=== PATIENT | female | born 1960 | race Caucasian/White ===

== ENCOUNTER 2017-10-02 08:50 | Inpatient (IN) | payer OTHER ==
[~2017-10-02] VITALS: Ht 175.3 cm; Wt 90.7 kg
[~2017-10-02 08:50] MED LIST: AMOX-CLAV 875-1 EACH PO; ASPIRIN EC81 M1 PO; ATORVASTATIN CA10 M1 PO; AUGMENTIN 875-1 EACH PO; CHLORTHALIDONE25 M1 PO; FISH OIL 1,0001 EAC4 PO; IBUPROFEN400 M1 PO; LOSARTAN POTAS100 M1 PO; MONTELUKAST SOD10 M1 PO; PROAIR HFA8.5 GM INH; SYSTANE 0.3-0.415 ML OU; TRAMADOL HCL50 M1 PO; VALIUM2 M1 PO; VITAMIN D2000 UNIT PO
--- NOTE | 2017-10-02 08:54 | ED ANIMAL BITE/WOUND CHECK ---
History of Present Illness General Chief Complaint: General Adult Stated Complaint: WAS SEEN 2-17 FOR CAT BITE, NO CHANGE (INFECTION) Source: patient, old records Exam Limitations: no limitations Vital Signs & Intake/Output Vital Signs & Intake/Output Vital Signs Date Time Temp Pulse Resp B/P B/P Pulse O2 O2 Flow FiO2 Mean Ox Delivery Rate 10/02 1042 99.2 97 16 122/74 98 Room Air 10/02 1038 Room Air 10/02 0856 99.1 99 20 119/80 96 Room Air Allergies Coded Allergies: celecoxib (From CELEBREX) (ABD PAIN 10/01/17) nut - unspecified (STOMACH ACHE AND CAUSES WHEEZING 10/01/17) Uncoded Allergies: ALLOY METAL (BLISTERS 10/01/17) Reconcile Medications Albuterol Sulfate (Proair Hfa) 90 MCG HFA.AER.AD 2 PUF INH 4XDAILY PRN RESP. (Reported) Amoxicillin/Clavulanate Potass (Amox-Clav 875-125 MG Tablet) 875 MG-125 MG TABLET 1 TAB PO BID ABX (Reported) Amoxicillin/Potassium Clav (Augmentin 875-125 Tablet) 875 MG-125 MG TABLET 1 TAB PO BID cellulitis Aspirin (Ecotrin*) 81 MG TABLET.DR 1 TAB PO DAILY HEART/BLOOD (Reported) Atorvastatin Calcium 10 MG TABLET 1 TAB PO DAILY CHOLESTEROL (Reported) Chlorthalidone 25 MG TABLET 0.5 TAB PO DAILY DIURETIC (Reported) Cholecalciferol (Vitamin D3) (Vitamin D) 2,000 UNIT CAPSULE 1 CAP PO DAILY SUPPLEMENT (Reported) Fluticasone/Salmeterol (Advair 250-50 Diskus) 250 MCG-50 MCG/DOSE BLST.W.DEV 1 PUF INH BID ASTHMA (Reported) Ibuprofen 400 MG TABLET 1 TAB PO Q8P PRN pain Losartan Potassium 100 MG TABLET 1 TAB PO DAILY BP (Reported) Montelukast Sodium 10 MG TABLET 1 TAB PO DAILY ALLERGIES (Reported) [place]-3 Fatty Acids/Fish Oil (Fish Oil 1,000 MG Softgel) (Unknown Strength) CAPSULE (Unknown Dose) PO DAILY SUPPLEMENT (Reported) Propylene Glycol/Peg 400 (Systane 0.3-0.4% Eye Drops) 0.3 %-0.4 % DROPS 1 GTT OU AD PRN EYE LUBRICANT (Reported) Tramadol HCl 50 MG TABLET 2 TAB PO 4XDAILY PRN PAIN (Reported) Triage Nurses Notes Reviewed? yes HPI: Patient was bitten by her cat yesterday. Patient then went to walk in [place] and she was put on amoxicillin. The swelling and redness got worse so she came in yesterday evening to the emergency room. Patient was given IV Unasyn. Patient lab work looked normal. Patient wanted to try and go home. Patient was put on Augmentin. Patient took Augmentin this morning. Patient was asked to come back this morning for reevaluation. The redness is spreading up her arm and is now above her elbow. Patient also has an aching pain to her right axilla. Positive chills but no fevers. No anorexia. Patient states that she feels much worse than she did yesterday. Past History Travel History Traveled to [place] past 21 day No Medical History Any Pertinent Medical History? 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 No Review of Systems Review of Systems Constitutional: Reports: see HPI, chills. EENTM: Reports: no symptoms. Respiratory: Reports: no symptoms. Cardiovascular: Reports: no symptoms. GI: Reports: no symptoms. Genitourinary: Reports: no symptoms. Musculoskeletal: Reports: see HPI. Skin: Reports: see HPI. Neurological/Psychological: Reports: no symptoms. Hematologic/Endocrine: Reports: no symptoms. Immunologic/Allergic: Reports: no symptoms. All Other Systems: Reviewed and Negative Physical Exam Physical Exam General Appearance: well developed/nourished, alert, awake Head: atraumatic Eyes: Bilateral: PERRL, EOMI. Ears, Nose, Throat: normal pharynx, normal ENT inspection, hearing grossly normal Neck: supple, lymphadenopathy (R) Respiratory: normal breath sounds, chest non-tender, no respiratory distress, lungs clear Cardiovascular: regular rate/rhythm, normal peripheral pulses Gastrointestinal: normal bowel sounds, soft, non-tender, no organomegaly Back: normal inspection, normal range of motion Extremities: ERYTHEMA AND TRACKING ERYTHEMA UP ABOVE HER ELBOW. pOSITIVE RIGHT AXILLARY ADENOPATHY. Neurologic/Psych: no motor/sensory deficits, awake, alert, oriented x 3, normal gait, normal mood/affect Skin: warm/dry Lymphatic: axilla node tender (R) Progress Differential Diagnosis: cellulitis Plan of Care: Orders Procedure Date/time Status Heart Healthy Diet 10/02 L Active Vital Signs 10/02 1122 Active Teach/Educate 10/02 1122 Active Pain Treatment and Response 10/02 1122 Active Nutritional Intake, Monitor 10/02 1122 Active Isolation 10/02 1122 Active Intake & Output 10/02 1122 Active Patient Care Conference 10/02 1122 Active Activity/Ambulation 10/02 1122 Active Intake & Output 10/02 1038 Active BLOOD CULTURE 10/02 1019 Active Pathway - chart 10/02 1009 Active House Staff 10/02 1009 Active Code Status 10/02 1009 Active Patient Data 10/02 0942 Active ED Holding Orders 10/02 0900 Active Admit to inpatient 10/02 0900 Active Vital Signs 10/02 0900 Active Code Status 10/02 0900 Complete COMPREHENSIVE METABOLIC PANEL 10/02 0859 Complete CBC WITHOUT DIFFERENTIAL 10/02 0859 Complete EKG 10/02 0859 Active VTE Mechanical Prophylaxis 10/02 UNK Active Current Medications Sig/Adair Start time Last Medication Dose Stop Time Status Admin Aspirin Buffered 81 MG DAILY 10/03 1000 AC (Ecotrin) Atorvastatin Calcium 10 MG DAILY 10/03 1000 AC (Lipitor) Enoxaparin Sodium 40 MG DAILY 10/03 1000 AC (Lovenox) Losartan Potassium 100 MG DAILY 10/03 1000 AC (Cozaar) Montelukast Sodium 10 MG DAILY 10/03 1000 AC (Singulair) Budesonide/ 2 PUF BID 10/02 2200 AC Formoterol Fumarate (Symbicort) Albuterol Sulfate 2 PUF 4 TIMES/DAY PRN 10/02 1400 AC (Ventolin) Ampicillin Sodium/ 1,500 MG Q6 10/02 1200 AC Sulbactam Sodium (Unasyn) Sodium Chloride 100 ML (Normal Saline 0.9%) Tramadol HCl 100 MG TID PRN 10/02 1015 AC (Ultram) Laboratory Tests 10/02/17 0933: Anion Gap 11, Estimated GFR > 60, BUN/Creatinine Ratio 17.1, Glucose 81, Calcium 9.8, Total Bilirubin 0.3, AST 33, ALT 75 H, Alkaline Phosphatase 49, Total Protein 6.7, Albumin 4.4, Globulin 2.3, Albumin/Globulin Ratio 1.9, CBC w Diff NO MAN DIFF REQ, RBC 4.79, MCV 85.7, MCH 28.6, MCHC 33.4, RDW 12.8, MPV 8.5, Gran % 66.5, Lymphocytes % 19.6 L, Monocytes % 9.4 H, Eosinophils % 3.8, Basophils % 0.7, Absolute Granulocytes 3.7, Absolute Lymphocytes 1.1 L, Absolute Monocytes 0.5, Absolute Eosinophils 0.2, Absolute Basophils 0 Microbiology 10/02 1129 BLOOD: Blood Culture - RECD 10/02 1129 BLOOD: Blood Culture - RECD Diagnostic Imaging: Viewed by Me: Radiology Read. Discussed w/RAD: Radiology Read. CXR Impression: PATIENT: CHIRAG TAVERAS PRESENT AGE: 56 PATIENT ACCOUNT NO: [id number] : 58 LOCATION: [facility] ORDERING PHYSICIAN: Flavio Mclaughlin MD SERVICE DATE: 10/02/17 EXAM TYPE: RAD - XRY-CHEST XRAY, TWO VIEWS EXAMINATION: XR CHEST CLINICAL INFORMATION: Fever. Concern for pneumonia. COMPARISON: None TECHNIQUE: 2 views of the chest were obtained. FINDINGS: The lungs are well expanded and clear with no focal consolidation or other abnormality demonstrated. The pleural spaces are clear. Heart size is normal. There is a small calcified right paratracheal lymph node. Spinal fusion hardware is partially visualized at the cervicothoracic junction. Mild multilevel spondylosis is present in the thoracic spine. IMPRESSION: No acute abnormality. No evidence for pneumonia. DICTATED BY: Michelle Maher MD DATE/ TIME DICTATED:10/02/17925 SUPERVISOR NURSE:HEMANT DATE/TIME TRANSCRIBED: 10/02/17925 CONFIDENTIAL, DO NOT COPY WITHOUT APPROPRIATE AUTHORIZATION. < Electronically signed in Other Vendor System> SIGNED BY: Michelle Maher MD 10/02/17930 Initial ED EKG: NSR, no ST T wave changes Departure Departure Disposition: STILL A PATIENT Condition: Stable Clinical Impression Primary Impression: Cellulitis Referrals: Ollie Gomez MD (PCP/Family) Departure Forms: Customer Survey General Discharge Information Admission Note Spoke With: Uzma Man MD Documentation of Exam: Documentation of any treatments & extenuating circumstances including Concerns Regarding Discharge (functional status, medication knowledge or non-compliance, living conditions, etc.) that warrant an admission rather than observation: [ Patient has failed outpatient antibiotics for cellulitis after cat bite. She now has tracking erythema above her elbow as well as axillary adenopathy. Patient will be admitted to the hospital for IV antibiotics.]
--- NOTE | 2017-10-02 09:31 | RADIOLOGY REPORT ---
EXAMINATION: XR CHEST CLINICAL INFORMATION: Fever. Concern for pneumonia. COMPARISON: None TECHNIQUE: 2 views of the chest were obtained. FINDINGS: The lungs are well expanded and clear with no focal consolidation or other abnormality demonstrated. The pleural spaces are clear. Heart size is normal. There is a small calcified right paratracheal lymph node. Spinal fusion hardware is partially visualized at the cervicothoracic junction. Mild multilevel spondylosis is present in the thoracic spine. IMPRESSION: No acute abnormality. No evidence for pneumonia.
[2017-10-02 09:50] LABS: ABSOLUTE BASOPHIL COUNT 0 /CUMM (0.0-0.2); ABSOLUTE EOSINOPHIL COUNT 0.2 /CUMM (0.0-0.7); ABSOLUTE GRANULOCYTE CT 3.7 /CUMM (1.4-6.5); ABSOLUTE LYMPH COUNT 1.1 /CUMM (1.2-3.4); ABSOLUTE MONOCYTE COUNT 0.5 /CUMM (0.10-0.60); BASOPHIL % 0.7 % (0.0-2.0); EOSINOPHIL % 3.8 % (0-5); GRANULOCYTE % 66.5 % (42.2-75.2); MEAN CORPUSCULAR HGB 28.6 PG (27.0-31.0); MEAN CORPUSCULAR HGB CONC 33.4 G/DL (33.0-37.0); MEAN CORPUSCULAR VOLUME 85.7 FL (81.0-99.0); MEAN PLATELET VOLUME 8.5 FL (7.4-10.4); PLATELET COUNT 157 /CUMM (130-400); RBC DISTRIBUTION WIDTH 12.8 % (11.5-14.5); RED BLOOD CELL CT 4.79 /CUMM (4.20-5.40); WHITE BLOOD CELL COUNT 5.5 /CUMM (4.8-10.8)
--- NOTE | 2017-10-02 10:01 | History & Physical ---
[facility] 10/02/17 1000: General Information and HPI MD Statement: I have seen and personally examined CHIRAG TAVERAS and documented this H&P. The patient is a 56 year old F who presented with a patient stated chief complaint of [cellulitis secondary to cat bite]. Source of Information: patient, family Exam Limitations: no limitations History of Present Illness: 56-year-old female with past medical history of remote Hodgkin lymphoma status post chemotherapy and radiotherapy 20 years ago(currently on remission), hypertension, hyperlipidemia, asthma, chronic back pain, trauma to the neck status post C3-C7 effusion. She presented to the ED yesterday with a chief complaint of pain and swelling around a cat bite site. Yesterday the patient was given tetanus posterior does and prescribed Augmentin, she was then sent home. This morning the patient came back with worsening right arm swelling, erythema and tenderness. The erythema now is extended to the right axilla and associated with tender lymphadenopathy on the right exiting left and right side of the neck. The patient denies fever, chills, shortness breath, or chest pain. She denies any recent weight loss. Allergies/Medications Allergies: Coded Allergies: celecoxib (From CELEBREX) (ABD PAIN 10/01/17) nut - unspecified (STOMACH ACHE AND CAUSES WHEEZING 10/01/17) Uncoded Allergies: ALLOY METAL (BLISTERS 10/01/17) Home Med list Albuterol Sulfate (Proair Hfa) 90 MCG HFA.AER.AD 2 PUF INH 4XDAILY PRN RESP. (Reported) Amoxicillin/Clavulanate Potass (Amox-Clav 875-125 MG Tablet) 875 MG-125 MG TABLET 1 TAB PO BID ABX (Reported) Amoxicillin/Potassium Clav (Augmentin 875-125 Tablet) 875 MG-125 MG TABLET 1 TAB PO BID cellulitis Aspirin (Ecotrin*) 81 MG TABLET.DR 1 TAB PO DAILY HEART/BLOOD (Reported) Atorvastatin Calcium 10 MG TABLET 1 TAB PO DAILY CHOLESTEROL (Reported) Chlorthalidone 25 MG TABLET 0.5 TAB PO DAILY DIURETIC (Reported) Cholecalciferol (Vitamin D3) (Vitamin D) 2,000 UNIT CAPSULE 1 CAP PO DAILY SUPPLEMENT (Reported) Fluticasone/Salmeterol (Advair 250-50 Diskus) 250 MCG-50 MCG/DOSE BLST.W.DEV 1 PUF INH BID ASTHMA (Reported) Ibuprofen 400 MG TABLET 1 TAB PO Q8P PRN pain Losartan Potassium 100 MG TABLET 1 TAB PO DAILY BP (Reported) Montelukast Sodium 10 MG TABLET 1 TAB PO DAILY ALLERGIES (Reported) [place]-3 Fatty Acids/Fish Oil (Fish Oil 1,000 MG Softgel) (Unknown Strength) CAPSULE (Unknown Dose) PO DAILY SUPPLEMENT (Reported) Propylene Glycol/Peg 400 (Systane 0.3-0.4% Eye Drops) 0.3 %-0.4 % DROPS 1 GTT OU AD PRN EYE LUBRICANT (Reported) Tramadol HCl 50 MG TABLET 2 TAB PO 4XDAILY PRN PAIN (Reported) Past History Travel History Traveled to [place] past 21 day No Medical History Neurological: NONE EENT: allergies Cardiovascular: hypertension, hyperlipidemia Respiratory: NONE Gastrointestinal: NONE Hepatic: NONE Renal: NONE Musculoskeletal: C-SPINE HERNIATIONS Psychiatric: chronic pain disorder, depression Endocrine: NONE Blood Disorders: NONE Cancer(s): 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 Exam & Diagnostic Data Last 24 Hrs of Vital Signs/I&O Vital Signs Date Time Temp Pulse Resp B/P B/P Pulse O2 O2 Flow FiO2 Mean Ox Delivery Rate 10/02 1042 99.2 97 16 122/74 98 Room Air 10/02 1038 Room Air 10/02 0856 99.1 99 20 119/80 96 Room Air Intake & Output 10/02 1600 10/02 0800 10/02 0000 Intake Total Output Total Balance Patient 90.718 kg Weight Weight Reported by Patient Measurement Method Physical Exam General Appearance Alert, Oriented X3, Cooperative, No Acute Distress Skin right arm edema and erythema HEENT Atraumatic, PERRLA, EOMI, Mucous Membr. moist/pink Neck No JVD, right side anterior and posterior LAD with tenderness Lymphatic tender right axillary LN Cardiovascular Regular Rate, Normal S1, Normal S2, No Murmurs Lungs Normal Air Movement, very mild right sided wheezing Abdomen Soft, No Tenderness Neurological Normal Speech, Cranial Nerves 3-12 NL Extremities No Clubbing, No Cyanosis, No Edema (except right arm ), right hand swelling, erythma, and tenderness around the cat teeth kip on the ulner side. erthema and tenderness on medial side of the right forearm , the erythma borders was marked with a skin marker Last 24 Hrs of Labs/Nitesh: Laboratory Tests 10/02/17 0933: Anion Gap 11, Estimated GFR > 60, BUN/Creatinine Ratio 17.1, Glucose 81, Calcium 9.8, Total Bilirubin 0.3, AST 33, ALT 75 H, Alkaline Phosphatase 49, Total Protein 6.7, Albumin 4.4, Globulin 2.3, Albumin/Globulin Ratio 1.9, CBC w Diff NO MAN DIFF REQ, RBC 4.79, MCV 85.7, MCH 28.6, MCHC 33.4, RDW 12.8, MPV 8.5, Gran % 66.5, Lymphocytes % 19.6 L, Monocytes % 9.4 H, Eosinophils % 3.8, Basophils % 0.7, Absolute Granulocytes 3.7, Absolute Lymphocytes 1.1 L, Absolute Monocytes 0.5, Absolute Eosinophils 0.2, Absolute Basophils 0 Microbiology 10/02 1130 BLOOD: Blood Culture - RECD 10/02 1115 BLOOD: Blood Culture - RECD Diagnostic Data EKG Results NSR with no abnormal finding except non significant mild st elevation on V2 Assessment/Plan Assessment: 56-year-old female who came yesterday to the ED with cellulitis post cat bite, she was given Augmentin and tetanus vaccine and was sent home. The patient's symptoms failed outpatient antibiotic for which she presented again to the ED. This morning she had erythema that extended from the hand to the forearm, right axilla, and right-sided neck lymph node. Plan #Cellulitis secondary to Cat bite * She will be admitted to the general medicine floor * Started on IV Unasyn * We will send for blood culture, most likely will be false-negative given recent antibiotic. * Follow the cellulitis borders(marked with a skin marker) daily #Hypertension, hyperlipidemia, asthma, and chronic back pain * Continue all home medication include * Metoprolol * Aspirin 81 mg * Losartan * Statin * Advair inhaler/albuterol inhaler * Montelukast * Tramadol 100 mg 3 times a day when necessary for pain -Heart healthy diet -DVT PPx: Lovenox -Full code As Ranked By This Provider Problem List: 1. Cat bite involving extremity 2. Cellulitis 3. Cervical radiculopathy Core Measures/Misc (05/01) Acute Coronary Syndrome ACS Diagnosis: No Congestive Heart Failure Congestive Heart Failure Diagnosis No Cerebrovascular Accident CVA/TIA Diagnosis: No VTE (View Protocol) VTE Risk Factors Age>40 No Mechanical VTE Prophylaxis d/t N/A MechProphylax Ordered No VTE Pharm Prophylaxis d/t NA PharmProphylax ordered Sepsis (View protocol) Sepsis Present: No Uzma Man MD 10/02/17 1431: Attending MD Review Statement Attending Statement Attending MD Statement: examined this patient, discuss w/resident/PA/BLASTING CONTRACT MAN, agreed w/resident/PA/BLASTING CONTRACT MAN, reviewed EMR data (avail) Attending Assessment/Plan: 56F PMH remote Hodgkin lymphoma status post chemotherapy and radiotherapy 20 years ago (currently in remission), HTN, HLD, asthma, chronic back pain with cat bite 2 days ago on the inside of her right wrist, saw her PCP, started Amoxicillin, worsened yesterday and came to ED where she was placed on Augmentin , returned to ED for follow up today with worsening erythema, pain, and swelling surrounding the bite, with streaking erythema up her inside forearm and upper arm, with right sided painful lymphadenopathy. She denies fever, chills, n/v, anorexia, or any other symptoms. The cat was a rescue and had been vaccinated, and the patient received the tetanus vaccine in the ED. 1. Cellulitis of right wrist and forearm due to cat bite with ascending lymphangitis and right axillary lymphadenopathy 2. Failure of outpatient treatment Plan - Admit to general medicine - Start Unasyn - Monitor borders of erythema - Blood cultures - Continue home medications - DVT PPx
[2017-10-02] MEDS ORDERED: ADVAIR 250-501 EACH INH (10:12)
[2017-10-02 13:58] VITALS: BP 136/92
--- NOTE | 2017-10-02 14:36 | Admission Certification ---
Admission Certification Certification Statement - As attending physician, I certify that at the time of - admission, based on clinical presentation, severity of - symptoms, need for further diagnostic testing and - therapeutic interventions, and risk of adverse outcomes - without in-hospital treatment, in my clinical assessment, - this patient requires an acute hospital stay for a minimum - of two nights or longer. I have also considered psychsocial - factors such as support system, advanced age, financial - issues, cognitive issues, and failed out-patient treatments, - past re-admission history, safety of patient, and lack of - compliance as applicable. Specific rationale supporting this admission is: Cellulitis wrist due to cat bite failing outpatient antibiotics with axillary lymphadenopathy
[2017-10-02 22:03] VITALS: BP 128/82
[2017-10-03 06:59] VITALS: BP 124/84
--- NOTE | 2017-10-03 08:16 | PN- Housestaff ---
Subjective Follow-up For: cat bite cellulitis Subjective: cellulitis improving on intravenous antibiotics but still complaining of significant pain and swelling in the palm of her hand and wrist with movement and tender right axillary lymphadenopathy afebrile Review of Systems Constitutional: Reports: see HPI. Objective Last 24 Hrs of Vital Signs/I&O Vital Signs Date Time Temp Pulse Resp B/P B/P Pulse O2 O2 Flow FiO2 Mean Ox Delivery Rate 10/03 0659 98.1 81 20 124/84 97 10/02 2203 98.5 81 20 128/82 98 Room Air 10/02 1358 98.1 85 20 136/92 97 Intake & Output 10/03 1600 10/03 0800 10/03 0000 Intake Total 720 250 Output Total Balance 720 250 Intake, IV 240 10 Intake, Oral 480 240 Number 0 0 Bowel Movements Physical Exam General Appearance: Alert, Oriented X3, Cooperative, No Acute Distress Cardiovascular: Regular Rate, Normal S1, Normal S2, No Murmurs Lungs: Clear to Auscultation, Normal Air Movement Abdomen: Normal Bowel Sounds, Soft, No Tenderness, No Masses Extremities: No Clubbing, No Cyanosis, No Edema, Normal Pulses, R arm wrist cellulitis, R axillary lymphadenopathy Current Medications: Current Medications Sig/Adair Start time Last Medication Dose Route Stop Time Status Admin Acetaminophen 650 MG Q4P PRN 10/02 1715 AC PO Albuterol Sulfate 2 PUF 4 TIMES/DAY PRN 10/02 1400 AC INH Ampicillin Sodium/ 1,500 MG Q6 10/02 1200 AC 10/03 Sulbactam Sodium IV 0554 Sodium Chloride 100 ML Aspirin Buffered 81 MG DAILY 10/03 1000 AC 10/03 PO 0824 Atorvastatin Calcium 10 MG DAILY 10/03 1000 AC 10/03 PO 0823 Budesonide/ 2 PUF BID 10/02 2200 AC 10/02 Formoterol Fumarate INH 2138 Diphenhydramine HCl 25 MG ONCE ONE 10/025 DC 10/02 PO 10/02 Enoxaparin Sodium 40 MG DAILY 10/03 1000 AC SC Losartan Potassium 100 MG DAILY 10/03 1000 AC 10/03 PO 0824 Montelukast Sodium 10 MG DAILY 10/03 1000 AC 10/03 PO 0824 Oxycodone HCl 5 MG Q6 PRN 10/02 1715 AC 10/03 PO 0823 Tramadol HCl 100 MG TID PRN 10/02 1015 AC 10/03 PO 0555 Last 24 Hrs of Lab/Nitesh Results Last 24 Hrs of Labs/Mics: Laboratory Tests 10/03/17 0700: Anion Gap 8, Estimated GFR > 60, BUN/Creatinine Ratio 14.3, CBC w Diff NO MAN DIFF REQ, RBC 4.29, MCV 85.6, MCH 29.4, MCHC 34.3, RDW 13.1, MPV 8.9, Gran % 58.3, Lymphocytes % 27.0, Monocytes % 9.8 H, Eosinophils % 4.3, Basophils % 0.6 , Absolute Granulocytes 2.5, Absolute Lymphocytes 1.1 L, Absolute Monocytes 0.4 , Absolute Eosinophils 0.2, Absolute Basophils 0 Microbiology 10/02 1130 BLOOD: Blood Culture - RECD 10/02 1115 BLOOD: Blood Culture - RECD Assessment/Plan Assessment: 56 year old female who came yesterday to the ED with cellulitis from a cat bite which continued to spread up her and axillary tender lymphadenopathy after after being given Augmentin and tetanus vaccine as an outpatient. Cat bite cellulitis: Cellulitis on upper arm improved, persistent around bite puncture, right wrist/ hand Improving in IV antibiotics, continue Unasyn Follow up blood cultures Change to PO Augmentin for discharge to complete 7 day course HTN/HLD: Continue metoprolol, ACEi, statin, and aspirin Asthma: Advair inhaler/albuterol inhaler Montelukast Tramadol 100 mg 3 times a day when necessary for pain Heart healthy diet DVT ppx-lovenox 40mg subcutaneous Full code Problem List: 1. Cellulitis 2. Cat bite involving extremity Pain Ratin Pain Location: right hand and axilla Pain Goal: Pain 4 or less Pain Plan: prn Tomorrow's Labs & Rationales: none
[2017-10-03 08:39] LABS: ABSOLUTE BASOPHIL COUNT 0 /CUMM (0.0-0.2); ABSOLUTE EOSINOPHIL COUNT 0.2 /CUMM (0.0-0.7); ABSOLUTE GRANULOCYTE CT 2.5 /CUMM (1.4-6.5); ABSOLUTE LYMPH COUNT 1.1 /CUMM (1.2-3.4); ABSOLUTE MONOCYTE COUNT 0.4 /CUMM (0.10-0.60); BASOPHIL % 0.6 % (0.0-2.0); EOSINOPHIL % 4.3 % (0-5); GRANULOCYTE % 58.3 % (42.2-75.2); HEMATOCRIT 36.7 % (37-47); MEAN CORPUSCULAR HGB 29.4 PG (27.0-31.0); MEAN CORPUSCULAR HGB CONC 34.3 G/DL (33.0-37.0); MEAN CORPUSCULAR VOLUME 85.6 FL (81.0-99.0); MEAN PLATELET VOLUME 8.9 FL (7.4-10.4); PLATELET COUNT 139 /CUMM (130-400); RBC DISTRIBUTION WIDTH 13.1 % (11.5-14.5); RED BLOOD CELL CT 4.29 /CUMM (4.20-5.40); WHITE BLOOD CELL COUNT 4.2 /CUMM (4.8-10.8)
--- NOTE | 2017-10-03 11:09 | PN- Att Addend ---
Attending Addendum Attending Brief Note 56F [facility] remote Hodgkin lymphoma status post chemotherapy and radiotherapy 20 years ago (currently in remission), HTN, HLD, asthma, chronic back pain with cat bite 2 days ago on the inside of her right wrist, saw her PCP, started Amoxicillin, worsened yesterday and came to ED where she was placed on Augmentin , returned to ED for follow up today with worsening erythema, pain, and swelling surrounding the bite, with streaking erythema up her inside forearm and upper arm, with right sided painful lymphadenopathy. She denies fever, chills, n/v, anorexia, or any other symptoms. The cat was a rescue and had been vaccinated, and the patient received the tetanus vaccine in the ED. Arm erythema improving today, though she still has warmth and throbbing. Afebrile. 1. Cellulitis of right wrist and forearm due to cat bite with ascending lymphangitis and right axillary lymphadenopathy 2. Failure of outpatient treatment Plan - Admit to general medicine - Start Unasyn - Monitor borders of erythema - Blood cultures - Continue home medications - DVT PPx - ANticipated discharge tomorrow on Unasyn
[2017-10-03 15:10] VITALS: BP 124/72
[2017-10-03 21:31] VITALS: BP 122/82
[2017-10-04 05:46] VITALS: BP 148/92
--- NOTE | 2017-10-04 07:01 | PN- Housestaff ---
Joselin FLOOD,Vishal 10/04/17 0701: Subjective Follow-up For: cat bite cellulitis Subjective: erythema, pain, and swelling are significantly improved axillary tenderness improved afebrile Review of Systems Constitutional: Reports: see HPI. Objective Last 24 Hrs of Vital Signs/I&O Vital Signs Date Time Temp Pulse Resp B/P B/P Pulse O2 O2 Flow FiO2 Mean Ox Delivery Rate 10/04 0846 148/92 10/04 0546 98.3 83 20 148/92 97 10/03 2131 98.4 90 20 122/82 97 Room Air 10/03 1510 98.4 78 18 124/72 99 Room Air Intake & Output 10/04 1600 10/04 0800 10/04 0000 Intake Total 720 250 Output Total 1 Balance 720 249 Intake, IV 240 10 Intake, Oral 480 240 Number 0 0 Bowel Movements Output, Stool 1 Physical Exam General Appearance: Alert, Oriented X3, Cooperative, No Acute Distress Lymphatic: Axillary nl, Cervical nl, right axillary tenderness but no palpable nodes Cardiovascular: Regular Rate, Normal S1, Normal S2, No Murmurs Lungs: Clear to Auscultation, Normal Air Movement Abdomen: Normal Bowel Sounds, Soft, No Tenderness, No Masses Extremities: No Clubbing, No Cyanosis, No Edema, Normal Pulses Current Medications: Current Medications Sig/Adair Start time Last Medication Dose Route Stop Time Status Admin Acetaminophen 650 MG Q4P PRN 10/02 1715 AC PO Albuterol Sulfate 2 PUF 4 TIMES/DAY PRN 10/02 1400 AC INH Amoxicillin/ 875 MG ONE TIME ONE 10/04 1000 DC Clavulanate Potassium PO 10/04 1001 Ampicillin Sodium/ 1,500 MG Q6 10/02 1200 DC 10/04 Sulbactam Sodium IV 0611 Sodium Chloride 100 ML Aspirin Buffered 81 MG DAILY 10/03 1000 AC 10/04 PO 0847 Atorvastatin Calcium 10 MG DAILY 10/03 1000 AC 10/04 PO 0847 Budesonide/ 2 PUF BID 10/02 2200 AC 10/04 Formoterol Fumarate INH 0847 Enoxaparin Sodium 40 MG DAILY 10/03 1000 AC SC Losartan Potassium 100 MG DAILY 10/03 1000 AC 10/04 PO 0846 Montelukast Sodium 10 MG DAILY 10/03 1000 AC 10/04 PO 0846 Oxycodone HCl 5 MG Q6 PRN 10/02 1715 AC 10/04 PO 0906 Potassium Chloride 20 MEQ ONCE ONE 10/03 1615 DC 10/03 PO 10/03 1616 2113 Tramadol HCl 100 MG TID PRN 10/02 1015 AC 10/04 PO 0611 Assessment/Plan Assessment: 56 year old female who came yesterday to the ED with cellulitis from a cat bite which continued to spread up her and axillary tender lymphadenopathy after after being given Augmentin and tetanus vaccine as an outpatient. Cat bite cellulitis: Cellulitis on upper arm improved, persistent around bite puncture, right wrist/ hand Improving in IV Unasyn Blood cultures negative Change to PO Augmentin for discharge for 7 days on discharge Tramadol 50mg PO TID prn for analgesia HTN/HLD: Continue metoprolol, ACEi, statin, and aspirin Asthma: Advair inhaler/albuterol inhaler Montelukast Heart healthy diet DVT ppx-lovenox 40mg subcutaneous Full code Stable for discharge today Problem List: 1. Cellulitis 2. Cat bite involving extremity Pain Ratin Pain Location: right hand Pain Goal: Pain 4 or less Pain Plan: prn Tomorrow's Labs & Rationales: none, discharge Uzma Man MD 10/04/17 1051: Attending MD Review Statement Attending Statement Attending MD Statement: examined this patient, discuss w/resident/PA/SONOGRAPHY TECHNICIAN, agreed w/resident/PA/SONOGRAPHY TECHNICIAN, reviewed EMR data (avail) Attending Assessment/Plan: 56F PMH remote Hodgkin lymphoma status post chemotherapy and radiotherapy 20 years ago (currently in remission), HTN, HLD, asthma, chronic back pain with cat bite 2 days ago on the inside of her right wrist, saw her PCP, started Amoxicillin, worsened yesterday and came to ED where she was placed on Augmentin , returned to ED for follow up today with worsening erythema, pain, and swelling surrounding the bite, with streaking erythema up her inside forearm and upper arm, with right sided painful lymphadenopathy. She denies fever, chills, n/v, anorexia, or any other symptoms. The cat was a rescue and had been vaccinated, and the patient received the tetanus vaccine in the ED. Erythema nearly resolved, as has lymphadenopathy 1. Cellulitis of right wrist and forearm due to cat bite with ascending lymphangitis and right axillary lymphadenopathy 2. Failure of outpatient treatment Plan - Discharge home - Augmentin on discharge - Continue home medications - PCP follow up
--- NOTE | 2017-10-04 07:56 | Discharge Summary ---
Visit Information Visit Dates Admission Date: 10/02/17 Discharge Date: 10/04/17 Hospital Course Course Attending Physician: Uzma Man MD Primary Care Physician: Patricia FLOOD,Ollie Hospital Course: 56 year old female with past medical history significant for Hodgkin lymphoma s/ p chemoradiotherapy 20 years ago currently in remission, hypertension, hyperlipidemia, asthma, and chronic back pain presented to the ED with pain, swelling, and erythema around a cat bite on her right hand and wrist. The patient was discharged home on oral augmentin and given a tetanus booster. The following day, the patient was admitted with worsening right arm swelling and erythema tracking up the arm and tender axillary lymphadenopathy. The patient was afebrile, without leukocytosis, and blood cultures were negative. The patient was treated with intravenous Unasyn and her pain, cellulits, and tender lymphadenopathy quickly improved over the next two days. The patient was discharged with one week of PO Augmentin. Tramadol was continued for analgesia. The patient's other home medications were continued. The patient was instructed to follow up with her primary care physician within two weeks of discharge. Allergies: Coded Allergies: celecoxib (From CELEBREX) (ABD PAIN 10/01/17) nut - unspecified (STOMACH ACHE AND CAUSES WHEEZING 10/01/17) Uncoded Allergies: ALLOY METAL (BLISTERS 10/01/17) Disposition Summary Disposition Principal Diagnosis: Cellulitis of right wrist and forearm due to cat bite with ascending lymphangitis and right axillary lymphadenopathy Failure of outpatient treatment Additional Diagnosis: Hypertension Hyperlipidemia Asthma Discharge Disposition: home or self care Discharge Instructions General Discharge Information Code Status: Full Code Patient's Diet: Heart healthy diet Patient's Activity: As tolerated, no limitations Follow-Up Instructions/Appts: Please follow up with your primary care physician within two weeks of discharge. Medications at Discharge Discharge Medications: Continue taking these medications: Atorvastatin Calcium (Atorvastatin Calcium) 10 MG TABLET 1 Tablet ORAL DAILY Qty = 90 Comments: Last Taken: 10/04/17 Time: 0850 AM Losartan Potassium (Losartan Potassium) 100 MG TABLET 1 Tablet ORAL DAILY Qty = 90 Comments: Last Taken: 10/04/17 Time: 0850 AM Montelukast Sodium (Montelukast Sodium) 10 MG TABLET 1 Tablet ORAL DAILY Qty = 90 Comments: Last Taken: 10/04/17 Time: 0850 AM Tramadol HCl (Tramadol HCl) 50 MG TABLET 2 Tablet ORAL 4XDAILY as needed for PAIN Qty = 224 Comments: Last Taken: 10/04/17 Time: 0600 AM Albuterol Sulfate (Proair Hfa) 90 MCG HFA.AER.AD 2 Puff Inhale through mouth 4XDAILY as needed for RESP. Qty = 9 Comments: NOT GIVEN IN HOSPITAL Chlorthalidone (Chlorthalidone) 25 MG TABLET 0.5 Tablet ORAL DAILY Qty = 45 Comments: NOT GIVEN IN HOSPITAL Cholecalciferol (Vitamin D3) (Vitamin D) 2,000 UNIT CAPSULE 1 Capsule ORAL DAILY Comments: NOT GIVEN IN HOSPITAL [place]-3 Fatty Acids/Fish Oil (Fish Oil 1,000 MG Softgel) (Unknown Strength) CAPSULE Unknown Dose ORAL DAILY Comments: NOT GIVEN IN HOSPITAL Aspirin (Ecotrin*) 81 MG TABLET.DR 1 Tablet ORAL DAILY Comments: Last Taken: 10/04/17 Time: 0850 AM Propylene Glycol/Peg 400 (Systane 0.3-0.4% Eye Drops) 0.3 %-0.4 % DROPS 1 Drop Both Eyes As Directed as needed for EYE LUBRICANT Comments: NOT GIVEN IN HOSPITAL Ibuprofen (Ibuprofen) 400 MG TABLET 1 Tablet ORAL EVERY 8 HOURS NEEDED as needed for pain Qty = 20 Comments: NOT GIVEN IN HOSPITAL Fluticasone/Salmeterol (Advair 250-50 Diskus) 250 MCG-50 MCG/DOSE BLST.W.DEV 1 Puff Inhale through mouth TWICE DAILY Comments: NOT GIVEN IN HOSPITAL Amoxicillin/Potassium Clav (Augmentin 875-125 Tablet) 875 MG-125 MG TABLET 1 Tablet ORAL TWICE DAILY Qty = 14 Comments: Last Taken: 10/04/17 Time: 1100 AM This prescription has been renewed Copies To: Patricia FLOOD,Ollie Small MD Review Statement Documenting Attending: Uzma Man MD
[2017-10-04] MEDS ORDERED: AUGMENTIN 875-1 EACH PO (07:58)
--- NOTE | 2017-10-04 07:58 | Patient Discharge Instructions ---
Discharge Instructions General Discharge Information You were seen/treated for: cellulitis Special Instructions: please follow up with your primary care physician within two weeks of discharge. please return to the hospital if you develop severe, pain, fever, or worsening cellulitis Acute Coronary Syndrome Inclusion Criteria At DC or during hospital stay patient has or had the following: ACS DIAGNOSIS No Discharge Core Measures Meds if any: Prescribed or Continued at Discharge Meds if any: NOT Prescribed or Continued at Discharge Congestive Heart Failure Inclusion Criteria At DC or during hospital stay patient has or had the following: CHF DIAGNOSIS No Discharge Core Measures Meds if any: Prescribed or Continued at Discharge Meds if any: NOT Prescribed or Continued at Discharge Cerebrovascular accident Inclusion Criteria At DC or during hospital stay patient has or had the following: CVA/TIA Diagnosis No Discharge Core Measures Meds if any: Prescribed or Continued at Discharge Meds if any: NOT Prescribed or Continued at Discharge Venous thromboembolism Inclusion Criteria VTE Diagnosis No VTE Type NONE VTE Confirmed by (Test) NONE Discharge Core Measures - Per Current guidelines, there needs to be overlap - treatment for the first 5 days of Warfarin therapy. - If discharged on Warfarin prior to 5 days of - overlap therapy, the patient will need to be - assessed for post discharge needs including - *Post discharge parental anticoagulation - *Warfarin and/or parental anticoagulation education - *Follow up date to check INR post discharge At least 5 days overlap therapy as Inpatient No Meds if any: Prescribed or Continued at Discharge Note: Overlap Therapy is Warfarin and Anticoagulant Meds if any: NOT Prescribed or Continued at Discharge
[2017-10-04 08:46] VITALS: BP 148/92
== END 2017-10-04 11:19 | DRG 603 ==
LOC: ERH 08:50 → 2NB 09:00 → ERHI 09:00 → ENRESERV 10:28 → ENTRNSPT 10:43 → EDTRNSPT 11:00 → EDTRNSPTSTS 11:00 → 2NB 11:01 → CMPTRNSPT 11:14 → ENPENDDIS 10-04 10:17 → 2NB 10-04 11:19
PROVIDERS: Emergency Medicine; Student in an Organized Health Care Education/Training Program
DX: L03.113 Cellulitis of right upper limb (principal); M50.20 Other cervical disc displacement, unspecified cervical region; E78.5 Hyperlipidemia, unspecified; S61.551A Open bite of right wrist, initial encounter; W55.01XA Bitten by cat, initial encounter; Z85.72 Personal history of non-Hodgkin lymphomas; Z92.21 Personal history of antineoplastic chemotherapy; I10 Essential (primary) hypertension; J45.909 Unspecified asthma, uncomplicated; M54.9 Dorsalgia, unspecified; Z88.6 Allergy status to analgesic agent; Z91.018 Allergy to other foods; Z79.82 Long term (current) use of aspirin; Z79.51 Long term (current) use of inhaled steroids; F32.9 Major depressive disorder, single episode, unspecified; M54.12 Radiculopathy, cervical region
CPT/HCPCS: 2NBSP; 36415; 71046; 82436; 87040; 93005; 93010; 96374; J1650; J3490

== ENCOUNTER 2018-01-31 02:06 | Inpatient (IN) | payer OTHER ==
[~2018-01-31] VITALS: Ht 175.3 cm; Wt 93.1 kg
[~2018-01-31 02:06] MED LIST changes: +ADVAIR 250-501 EACH INH
--- NOTE | 2018-01-31 08:53 | Operative Report ---
Operative/Inv Procedure Report Surgery Date: 01/31/18 Name of Procedure: 1. L3, L4, L5 pars osteotomies for correction of deformity 2. L3/4, L4/5, L5/ S1 far lateral discectomies, TLIF with interbody anne tritanium cages, autograft 3. L3, L4, L5, S1 segmental posterolateral arthrodesis with styker vyas pedicle screws/rods, autograft, bio boat DBM allograft, ICBM aspirate 4. ICBM aspirate 5. O-arm navigation Pre-Operative Diagnosis: L3/4, L4/5, L5/S1 spondylolisthesis, stenosis, DDD Post-Operative Diagnosis: same Estimated Blood Loss: cc Surgeon/Equity Research Analyst: Jim FLOOD,Taiwo Velazquez MD Anesthesia: general endotracheal tube Monitors: neurophysiologic monitoring IV Fluids: 3200cc replaced with crystalloid, 500cc colloid, 1550cc cell saver Implants: anne tritanium cages, vyas pedicle screws and rods Urine Output: 465cc via jerez Drains: med HV Specimens: L3/4, L4/5, L5/S1 disc material Complications: none Condition: neurologically stable Operative Indication: 57yo female with progressive and intractable bilat LE pain and parasthesias not responsive to conservative care with high grade stenosis, DDD, and spondylolisthesis from L3/4 to L5/S1 now presents for lumbar decompression and stabilization for multilevel high grade stenosis and spondylolisthesis L3-S1. Operative/Procedure Note Note: Patient was taken the operating room. After appropriate patient identification, neurophysiologic monitoring leads were placed and baseline recordings were obtained. The patient then underwent the smooth induction of general endotracheal anesthesia without incident. Following intubation monitoring was stable. A Jerez catheter was sterilely inserted. DVT prophylaxis was utilized throughout the case. Patient was given 2 g of IV Kefzol Preoperative Prophylaxis. With All Tubes and Lines Secured, the Patient Was Carefully Turned to the Prone Position on the Shun Frame Taking Care to Ensure That All Pressure Points Were Well-Padded. Monitoring Was Stable Following the Turn.The Low Back Was Widely Prepped and Draped Usual Sterile Fashion Using [place] Iodine Solution. A Vertical Midline Skin Incision Was Marked and Infiltrated with 10 ML of Local Anesthetic. Small gauge spinal needle was placed superficially and a localizing x-ray was obtained to confirm the needle to be at L5. Skin incision was made with a 10 blade knife. Dissection was carried down through subcutaneous tissue with the Bovie to the lumbodorsal fascia. The fascia was incised and a subperiosteal dissection of the lumbar paravertebral muscles was performed exposing the underlying spinous processes lamina and facets from L3 to S1 bilaterally and self-retaining retractors were placed beneath the muscle. A [place] 4 elevator was placed under the presumed L4 lamina and wes on the rostral pars and an intraoperative lateral lumbar x- rays was obtained to confirm the correct level. Xray showed the L3/4 level and we exposed down to the L5/S1 level and identified the sacral ala bilaterally. With the correct level verified, we then proceeded to expose the transverse processes from L3 to L5 as well as the sacral alar bilaterally and they were decorticated with a high-speed drill. We then focused our attention to the decompression. A complete laminectomy from L3 to S1 was completed using a combination of the bone scalpel, small straight and angled curettes and Kerrison rongeurs. Thickened ligamentum flavum was gently elevated and resected allowing excellent decompression of the thecal sac. Bilateral pars osteotomies were then performed at L3, L4, and L5 using combination the bone scalpel and a Kerrison rongeurs and total facetectomies were completed. All bone was saved and passed to the back table for subsequent arthrodesis. Pedicles were skeletonized at L3, L4, L5, and S1 bilaterally and the exiting and traversing roots were widely decompressed on both sides. We then focused our attention to the discectomies. Using a far lateral approach , discectomies were completed at L3/4, L4 5 from the patient's left side and from the right at L5/S1. The dural sac was gently mobilized to the midline, the underlying disc annulus was coagulated with a bipolar and incised in a rectangular fashion with an 11 blade knife and discectomies were completed with small straight and angled curettes pituitary rongeurs disc space fernando and rasps until all the cartilaginous endplates were removed at all 3 levels. 10 mL of right iliac crest bone marrow aspirate was then taken via a Jamshidi needle through a separate stab incision at the right iliac crest and added to the morcellated autograft. We next focused our attention to the interbody arthrodesis. Beginning at L5-S1, after appropriate trials, a 9 x 28 x 6 mm Anne titanium peek cage was selected. It was filled with morcellated autograft and ICBM aspirate. morcellated autograft which was packed into the anterior interspace. We then tamped the L5-S1 cage into the disc space under direct visualization and countersunk the cage by approximately 2 mm and its final position was noted to be excellent. At L4 5, a 11 x 28 x 6 mm titanium cage was also selected after appropriate trials and packed with morcellated autograft. Morcellated autograft was packed into the anterior disc space and the L4 5 cage was packed with autograft and then gently tamped into the interspace under direct visualization and countersunk by several millimeters and its position also confirmed and noted to be excellent. At L3 4, a 10 x 28 x 6 mm titanium cage was selected and packed with morcellated autograft. autograft were carefully packed into the anterior aspect of the L3 4 disc space followed by the cage was gently tamped into the interspace and countersunk by 2 mm and its final position confirmed and noted to be excellent. With all cages in position, we then proceeded to the posterior lateral arthrodesis. The O arm reference arc was then fixed to the right iliac crest and an AP and lateral x-rays were obtained with the O arm followed by a spin. Reconstructions were completed and confirmed. We then used live navigation to place all of the posterolateral hardware. Prior to placing the pedicle screw instrumentation, all residual bone graft was moistened with iliac crest bone marrow aspirate was packed over the transverse processes from L3 to the sacral alar bilaterally and compressed with 5cc of bio boat DBM. Entry points for [place] pedicle screws were selected using the O arm at the junction of the pars interarticularis transverse process and inferomedial aspect of the rostral facet. All screws were placed by piercing the bone with the drill, traversing the pedicle with a gearshift under the hole with a ball- tipped probe, and screw placed with power. We began at L3. 6.5 x 50 mm screw was placed bilaterally. At L4, 6.5 x 45 mm screws were placed bilaterally, at L5, 6.5 x 40 mm screws bilaterally, at S1, 6.5 x 35 mm screws placed bilaterally. With all screws were in position, they were stimulated with thresholds greater than 30 mA at all locations. With all the screws in position, we then obtained a second spin of the O arm and completed the reconstructions to ensure good hardware positioning. All cages were in excellent position. We backed out the left S1 screw one full turn as it was noted to extend just beyond the anterior cortex. With all screws in position, we gently lordosed and then top loaded 90 mm titanium rods and locking caps were placed. Screws were then finally tightened using antitorque device. Was copiously irrigated with bacitracin and sterile saline irrigation. Epidural bleeding was controlled using FloSeal, Surgifoam and cottonoid patties and points of muscle bleeding were controlled with the bipolar electrocautery. A medium ALEJANDRA drain was placed into the wound and secured to the skin with a 2-0 nylon suture. 1 g of vancomycin powder was gently used to cover the cut muscle and soft tissue surfaces in the wound and we then began closure. 10 mL of long- acting local anesthetic was placed in the paraspinal muscle. Deep muscle was reapproximated with interrupted 0 Vicryl suture. Subcutaneous tissue was closed in layers with interrupted oh and 2-0 Vicryl suture. The skin was closed with iris. The wounds were cleaned and dried. Bacitracin and sterile occlusive dressings were placed. The reference arc was removed from the right iliac crest. That wound was irrigated, closed in layers in the subcutaneous tissue with Vicryl suture and iris in the skin. It was cleaned and dried and a sterile occlusive dressing was placed. At the completion of the case, all sponge needle and injuring counts were correct at the completion of the procedure 3. Neurophysiologic monitoring was stable throughout the case. Patient was returned to the supine position, awakened extubated and taken to PACU in stable condition. She was noted to be moving all four extremities. Discharge Disposition: PACU Additional Comments: Patient noted to be excessively oozy during the entire case and received 1g TXA at the closing. Preop coagulation studies were normal and pt confirmed prior to case that she had dc'd all asa and nsaids 2 weeks preop.
--- NOTE | 2018-01-31 12:37 | RADIOLOGY REPORT ---
EXAMINATION: XR LUMBAR SPINE (timed 9:02 AM). XR LUMBAR SPINE (timed 9:36 AM). CLINICAL INFORMATION: L3-L4, L4-L5, L5-S1 fusion image. COMPARISON: CT scan of the lumbar spine dated 12/27/2017. TECHNIQUE: Single lateral view of the lumbar spine was performed FINDINGS: Film 1: A surgical marker is seen projecting in between the posterior spinous processes of L4 and L5. Grade 1 anterolistheses of L4 on L5 is seen. Minimal retrolisthesis of L5 on S1 is also noted. Film 2: Surgical markers are seen projected over the L3-L4 facet joint. Grade 1 anterolistheses of L4 on L5 is again noted. IMPRESSION: Intraoperative lateral views of the lumbar spine performed for localization purposes as discussed above.
[2018-01-31 13:05] LABS: ABSOLUTE BASOPHIL COUNT 0 /CUMM (0.0-0.2); ABSOLUTE EOSINOPHIL COUNT 0 /CUMM (0.0-0.7); ABSOLUTE GRANULOCYTE CT 7.6 /CUMM (1.4-6.5); ABSOLUTE LYMPH COUNT 0.6 /CUMM (1.2-3.4); ABSOLUTE MONOCYTE COUNT 0.2 /CUMM (0.10-0.60); BASOPHIL % 0.2 % (0.0-2.0); EOSINOPHIL % 0.4 % (0-5); MEAN CORPUSCULAR HGB 29.7 PG (27.0-31.0); MEAN CORPUSCULAR HGB CONC 34.5 G/DL (33.0-37.0); MEAN CORPUSCULAR VOLUME 86.1 FL (81.0-99.0); MEAN PLATELET VOLUME 8.9 FL (7.4-10.4); RBC DISTRIBUTION WIDTH 12.1 % (11.5-14.5); RED BLOOD CELL CT 4.18 /CUMM (4.20-5.40); WHITE BLOOD CELL COUNT 8.4 /CUMM (4.8-10.8)
[2018-01-31 13:07] LABS: GRANULOCYTE % 90.2 % (42.2-75.2)
[2018-01-31 13:30] LABS: PLATELET COUNT 125 /CUMM (130-400)
--- NOTE | 2018-01-31 14:47 | Operative Report ---
Operative/Inv Procedure Report Surgery Date: 01/31/18 Name of Procedure: L3 4 L4 5 L5-S1 far lateral bilateral complete laminectomies complete foraminotomies complete facetectomies and osteotomies at L3 4 L4 5 and L5-S1. L3 4 TLIF, insertion of 11 x 28 mm titanium interbody cage. L4 5 TLIF, insertion of titanium interbody cage. L5-S1 TLIF, insertion of titanium interbody cage. 34 L4 5 L5-S1 posterior lateral arthrodesis utilizing autologous bone graft and iliac crest graft aspirate. L3 4 L4 5 L5-S1 posterior lateral howard titanium segmental instrumentation. ` Stereotactic Pre-Operative Diagnosis: Lumbar spondylosis lumbar spondylolisthesis stenosis. Post-Operative Diagnosis: Same Estimated Blood Loss: 800cc Surgeon/Bath Steward: Taiwo Alfaro MD and Karyna Fernandez MD Anesthesia: general endotracheal tube Monitors: Electrophysiological monitoring Operative/Procedure Note Note: Patient was brought into the operating room, and after undergoing endotracheal intubation Quan catheterization Venodyne's were placed on both lower extremities. She was placed prone on an OSI table all bony prominences well- padded. Back was washed with alcohol and Betadine x-rays used for localization. It was reprepped again with ChloraPrep solution and draped in usual sterile fashion. An incision was now made from L3 down through S1 and developed down through the length subcutaneous tissues the paraspinal muscles were then mobilized out lateral to the level of the transverse processes. X-ray was used for confirmation. Working an bone scalpel the lamina of L3-L4 and L5 was now completely removed. The bone was harvested morcellized and later used in the arthrodesis. Furthermore bilateral foraminotomies and complete pars osteotomies were now performed at L3 4 bilaterally L4 5 and L5-S1. The facet joints were also removed leaving behind the pedicles. All bone was morcellized and harvested and used for the arthrodesis. At this point after clearing out the ligamentous tissue completely freed. At L3 4 the disc space was entered with 11 blade and was removed combination of straight and curved rongeurs and straight and curved curettes. The cartilaginous end plates were removed and the bony end plates were partially decorticated. Separate iliac crest graft incision was made over the right iliac crest and then working through that iliac crest graft aspirate was removed and mixed in with the autologous bone graft that was harvested from the patient's back. Bone graft was now packed into the interspace at L3 4. A cage 11 x 28 mm in length titanium was now centrally filled with autologous bone graft and tapped across the midline at the L3 4 level. Copious amounts of bacitracin irrigation attention was turned toward the L4 5 level. An 11 blade was now used to enter the L4 5 disc space and the space was now removed a combination of straight and curved rongeurs and straight and curved curettes. This cartilage endplates were removed and bony end plates were partially decorticated. Autologous bone graft was packed into the interspace. A titanium cage was centrally filled with autologous bone graft and tapped across the midline between the L4 and the L5 interspace. The L5-S1 disc was now entered with 11 blade and was removed with a combination of straight and curved rongeurs and straight and curved curettes. The cartilaginous endplates were removed and the bony endplates were partially decorticated. Bone graft was packed into the interspace at the L5-S1 level. A titanium cage was centrally packed with autologous bone graft and tapped across the midline at the L5-S1 level. The transverse processes at L3 L4 L5 and the ala of S1 were now posteriorly decorticated. Morselized bone was packed over the decorticated surfaces posterolaterally. Stereotactic coordinates were now obtained utilizing the O arm. Under stereotactic guidance the pedicles were accessed at L3-L4 L5- S1 with [employer] titanium instrumentation. 6.5 mm diameter screws were utilized. The lengths were utilized were 50 at L3 45 at L4 40 in length at L5 and 35 at S1. Screrws were stimulated and found to stimulate above 30 mA. Copious amounts of bacitracin irrigation was again used. A drain was placed and removed a separate stab incision superiorly. Vancomycin powder was placed into the wound. The paraspinal muscles and fascia were reapproximated utilizing interrupted 0 Vicryls. Inverted 2-0 Vicryl's were utilized for the subcutaneous teeniest tissues. The patient was extubated and taken to recovery room having the procedure well.
[2018-01-31 15:25] LABS: ABSOLUTE BASOPHIL COUNT 0.1 /CUMM (0.0-0.2); ABSOLUTE EOSINOPHIL COUNT 0 /CUMM (0.0-0.7); ABSOLUTE LYMPH COUNT 0.8 /CUMM (1.2-3.4); ABSOLUTE MONOCYTE COUNT 0.3 /CUMM (0.10-0.60); BASOPHIL % 0.4 % (0.0-2.0); EOSINOPHIL % 0.1 % (0-5); GRANULOCYTE % 91.9 % (42.2-75.2); HEMATOCRIT 33.1 % (37-47); MEAN CORPUSCULAR HGB 29.4 PG (27.0-31.0); MEAN CORPUSCULAR VOLUME 86.5 FL (81.0-99.0); MEAN PLATELET VOLUME 8.3 FL (7.4-10.4); PLATELET COUNT 116 /CUMM (130-400); RBC DISTRIBUTION WIDTH 12.5 % (11.5-14.5); RED BLOOD CELL CT 3.82 /CUMM (4.20-5.40)
[2018-01-31 15:35] LABS: WHITE BLOOD CELL COUNT 15.3 /CUMM (4.8-10.8)
--- NOTE | 2018-01-31 15:44 | RADIOLOGY REPORT ---
EXAMINATION: CR LUMBOSACRAL SPINE/INTRAOPERATIVE FLUOROSCOPY CLINICAL INDICATION: L3-L4, L4-L5, L5-S1 TLIF in OR COMPARISON: Lumbar spine films from earlier today. TECHNIQUE/FINDINGS: O-Arm equipment was dedicated to the operating room for the performance of an intraoperative procedure. 2 O-Arm runs were acquired and are archived in PACS, demonstrating the L3-S1 fusion with interbody disc spacer placements and grade 1 anterolistheses of L4 on 5. Please refer to operative notes for procedural detail. FLUOROSCOPY TIME: 6.17 seconds. IMPRESSION: Administrative dictation for intraoperative CT fluoroscopy and image archiving in PACS. Please refer to operative notes for details.
[2018-01-31 15:54] LABS: PT 14.4 SEC (9.4-12.5); PTT 42 SEC (25-37)
[2018-01-31 18:25] VITALS: BP 115/55
[2018-01-31 19:30] VITALS: BP 100/58
[2018-01-31 19:50] VITALS: BP 108/80
[2018-01-31 20:15] VITALS: BP 112/76
[2018-01-31 20:25] VITALS: BP 112/76
--- NOTE | 2018-01-31 20:59 | PN- Neurosurgical ---
Subjective Subjective: POST-OP NOTE Reports "tired" and "feel funny". Currently lumbar discomfort "7/10", although she is falling asleep periodically during conversation. Large amount of bloody drainage from the hemovac drain in pacu, but only 100mls more since transferred to [facility] floor. Serial labs drawn, with another set to be drawn at midnight. She denies dizziness. No shortness of breath. No chest pains. No nausea. Not yet out of bed. TXA transfused slowly over 15 minutes on floor, without any significant hypotension. Objective Vital Signs and I&Os Vital Signs Date Time Temp Pulse Resp B/P B/P Pulse O2 O2 Flow FiO2 Mean Ox Delivery Rate 01/31 2025 98.5 113 9 112/76 100 Nasal Cannula 01/31 1825 98.5 112 9 115/55 01/31 1825 98.5 112 9 55 99 Nasal 2.0L Cannula 01/31 1825 99 Nasal 2.0L Cannula Physical Exam: General - alert & oriented x 3. comfortable appearing. sleepy, but appropriately responding to questions. Lungs - clear bilaterally. no w/r/r. Cardiac - s1s2. slightly tachy, 100s-110 Abdomen - soft. nontender. Lumbar - dressings stained, but intact. no hematoma noted. hemovac drain appears to be slowing down in bloody drainage volume (300+275 in pacu, followed by 100 over 1-2 hours on floor) - jerez draining concentrated yellow urine (close to 500mls between OR & PACU ) Extremities - warm bilaterally. no c/c/e. calves soft and nontender b/l. sensation grossly equal. strong DF/PF/EHL. athrombics active b/l. Current Medications: Current Medications Sig/Adair Start time Last Medication Dose Route Stop Time Status Admin Acetaminophen 1,000 MG Q6H 01/31 2030 AC N/A 1 UNIT IV 02/01 1444 Acetaminophen 650 MG Q4P PRN 01/31 1815 DC PO Acetaminophen 1,000 MG .STK-MED ONE 01/31 0756 DC IV 01/31 0757 Albuterol Sulfate 2 PUF Q4P PRN 01/31 2030 AC INH Atorvastatin Calcium 10 MG 1700 02/01 1700 AC PO Bisacodyl 10 MG DAILY NEEDED PRN 01/31 1830 AC KS Budesonide/ 2 PUF BID 01/31 2100 AC Formoterol Fumarate INH Cefazolin Sodium 2 GM Q8H 01/31 2100 AC N/A 1 UNIT IV 02/02 0529 Cefazolin Sodium 2,000 MG ONCE 01/31 0000 NR IV 01/31 2359 Diazepam 5 MG Q8P PRN 01/31 1830 AC PO Docusate Sodium 100 MG TID 01/31 2100 AC PO Fentanyl Citrate 250 MCG .STK-MED ONE 01/31 0755 DC IM 01/31 0756 Heparin Sodium 5,000 UNIT Q8 02/01 0600 CAN (Porcine) SC Hydromorphone HCl 1 MG Q4P PRN 01/31 1830 DC IV Hydromorphone HCl 50 MG Q24H PRN 01/31 1545 AC Sodium Chloride 45 ML IV Hydromorphone HCl 2 MG .STK-MED ONE 01/31 0755 DC IM 01/31 0756 Ketorolac 15 MG Q6P PRN 01/31 1815 DC Tromethamine IV 02/05 1814 Losartan Potassium 100 MG DAILY 02/02 0900 AC PO Midazolam HCl 2 MG .STK-MED ONE 01/31 0756 DC IM 01/31 0757 Montelukast Sodium 10 MG AT BEDTIME 01/31 2100 AC PO Ondansetron HCl 4 MG Q6P PRN 01/31 1815 AC IV Oxycodone/ 2 TAB Q4P PRN 01/31 1815 DC Acetaminophen PO Remifentanil 2 MG .STK-MED ONE 01/31 0951 DC IV 01/31 0952 Remifentanil 5 MG .STK-MED ONE 01/31 0755 DC IV 01/31 0756 Senna 374 MG QPM PRN 01/31 1815 AC PO Sodium Chloride 500 ML BOLUS ONE 01/31 2015 AC 01/31 IV 01/31 2114 2003 Sodium Chloride 1,000 ML Q12H 01/31 1800 AC 01/31 IV 02/01 1359 1850 Tramadol HCl 50 MG Q4-6 PRN PRN 01/31 2030 AC PO Tramadol HCl 100 MG Q4-6 PRN PRN 01/31 2030 AC PO Tranexamic Acid 1,000 MG ONCE ONE 01/31 1945 DC 01/31 Sodium Chloride 100 ML IV 01/31 1959 1954 Tranexamic Acid 1,000 MG ONCE ONE 01/31 1845 CAN IV 01/31 2000 Trimethobenzamide HCl 200 MG Q6P PRN 01/31 1815 AC IM Zolpidem Tartrate 2.5 MG AT BEDTIME NEED.. 01/31 1815 AC PO Results Last 48 Hours of Labs: Laboratory Tests 01/31 01/31 01/31 1603 1555 1535 Chemistry Sodium (137 - 145 mmol/L) 140 Potassium (3.5 - 5.1 mmol/L) 4.4 Chloride (98 - 107 mmol/L) 109 H Carbon Dioxide (22 - 30 mmol/L) 25 Anion Gap (5 - 16) 6 BUN (7 - 17 mg/dL) 12 Creatinine (0.5 - 1.0 mg/dL) 0.9 Estimated GFR (>60 ml/min) > 60 BUN/Creatinine Ratio (7 - 25 %) 13.3 Creatine Kinase (30 - 135 U/L) 1472 H Coagulation PT (9.4 - 12.5 SEC) 14.4 H INR (0.90 - 1.19) 1.32 H APTT (25 - 37 SEC) 42 H Urines Urinalysis MOD H Urine Color (YEL,AMB,STR) BROWN H Urine Clarity (CLEAR) CLDY H Urine pH (5.0 - 8.0) 6.5 Ur Specific [place] (1.001 - 1.035) 1.015 Urine Protein (NEG,<30 MG/DL) 100 H Urine Ketones (NEG) TRACE H Urine Nitrite (NEG) POS H Urine Bilirubin (NEG) NEG@ICTO Urine Urobilinogen (0.1 - 1.0 EU/dl) 0.2 Ur Leukocyte Esterase (NEG) NEG Ur Microscopic SEDIMENT EXAMINED Urine RBC (0 - 5 /HPF) RARE Urine WBC (0 - 2 /HPF) RARE Ur Epithelial Cells (NONE,FEW) RARE Urine Bacteria (NEG/NONE) FEW H Urine Hemoglobin (NEG) LARGE H Urine Glucose (N MG/DL) NEG 01/31 01/31 1511 1232 Hematology CBC w Diff MAN DIFF ORDERED MAN DIFF ORDERED WBC (4.8 - 10.8 /CUMM) 15.3 H 8.4 RBC (4.20 - 5.40 /CUMM) 3.82 L 4.18 L Hgb (12.0 - 16.0 G/DL) 11.3 L 12.4 Hct (37 - 47 %) 33.1 L 36.0 L MCV (81.0 - 99.0 FL) 86.5 86.1 MCH (27.0 - 31.0 PG) 29.4 29.7 MCHC (33.0 - 37.0 G/DL) 34.0 34.5 RDW (11.5 - 14.5 %) 12.5 12.1 Plt Count (130 - 400 /CUMM) 116 L 125 L MPV (7.4 - 10.4 FL) 8.3 8.9 Gran % (42.2 - 75.2 %) 91.9 H 90.2 H Lymphocytes % (20.5 - 51.1 %) 5.5 L 6.8 L Monocytes % (1.7 - 9.3 %) 2.1 2.4 Eosinophils % (0 - 5 %) 0.1 0.4 Basophils % (0.0 - 2.0 %) 0.4 0.2 Absolute Granulocytes (1.4 - 6.5 /CUMM) 14.0 H 7.6 H Segmented Neutrophils (42.2 - 75.2 %) 86 H Band Neutrophils (0.0 - 5.0 %) 5 Absolute Lymphocytes (1.2 - 3.4 /CUMM) 0.8 L 0.6 L Lymphocytes (20.5 - 51.1 %) 6 L Monocytes (1.7 - 9.3 %) 3 Absolute Monocytes (0.10 - 0.60 /CUMM) 0.3 0.2 Absolute Eosinophils (0.0 - 0.7 /CUMM) 0 0 Absolute Basophils (0.0 - 0.2 /CUMM) 0.1 0 Platelet Estimate (ADEQUATE) VERIFIED BY SMEAR DECREASED Normocytic RBCs VERIFIED VERIFIED Normochromic RBCs VERIFIED VERIFIED Assessment/Plan Assessment/Plan This 57 year old female hx of Hodgkin lymph chemo and radiation htn,hdl,asthma, c3-7 fusion, is POD#0 s/p TLIF L3-S1 for history of L3/4, L4/5, L5/S1 spondylolisthesis, stenosis, DDD, with significant unexpected blood loss during the operation s/p cell saver reinfusion of 1500mls in combination, s/p ffp transfused during surgery due to significant unexpected bleeding, and TXA transfused post-operatively to assist with ongoing blood loss appreciated from her hemovac drain will transfer to icu overnight for close observation feltmaker - dilaudid 0.1mg demand for pain control iv tylenol added / tramadol when tolerating pills continue iv ancef while hemovac drain in place f/u labs at midnight and in the morning, with consideration for hematology consult if worsening thrombocytopenia or coagulopathy hold heparin sc until evidence of bleeding has stopped ALPS - dvt ppx jerez - strict i/o's TRC / IST hold losartan in setting of hypotension resume home meds (albuterol, singulair, advair, atorvastatin, tramadol) monitor hemovac drain output closely discussed above with Core Measures Venous Thromboembolism VTE Risk Factors Surgery No Mechanical VTE Prophylaxis d/t N/A MechProphylax Ordered No VTE Pharm Prophylaxis d/t Bleeding (Active)
[2018-01-31 21:00] VITALS: BP 112/60
[2018-02-01] VITALS (8 sets, daily range): BP systolic 110–138; BP diastolic 46–78
[2018-02-01 00:55] LABS: ABSOLUTE BASOPHIL COUNT 0 /CUMM (0.0-0.2); ABSOLUTE EOSINOPHIL COUNT 0 /CUMM (0.0-0.7); ABSOLUTE GRANULOCYTE CT 10.4 /CUMM (1.4-6.5); ABSOLUTE LYMPH COUNT 0.8 /CUMM (1.2-3.4); ABSOLUTE MONOCYTE COUNT 0.9 /CUMM (0.10-0.60); BASOPHIL % 0.2 % (0.0-2.0); EOSINOPHIL % 0 % (0-5); GRANULOCYTE % 85.7 % (42.2-75.2); MEAN CORPUSCULAR HGB 29.8 PG (27.0-31.0); MEAN CORPUSCULAR HGB CONC 34.3 G/DL (33.0-37.0); MEAN CORPUSCULAR VOLUME 86.7 FL (81.0-99.0); MEAN PLATELET VOLUME 8.9 FL (7.4-10.4); PLATELET COUNT 102 /CUMM (130-400); RBC DISTRIBUTION WIDTH 12.7 % (11.5-14.5); WHITE BLOOD CELL COUNT 12.1 /CUMM (4.8-10.8)
[2018-02-01 01:00] LABS: HEMATOCRIT 23.5 % (37-47); RED BLOOD CELL CT 2.72 /CUMM (4.20-5.40)
[2018-02-01 01:02] LABS: PT 13.4 SEC (9.4-12.5); PTT 26 SEC (25-37)
[2018-02-01 05:13] LABS: ABSOLUTE BASOPHIL COUNT 0 /CUMM (0.0-0.2); ABSOLUTE EOSINOPHIL COUNT 0 /CUMM (0.0-0.7); ABSOLUTE GRANULOCYTE CT 6.9 /CUMM (1.4-6.5); ABSOLUTE LYMPH COUNT 1.2 /CUMM (1.2-3.4); ABSOLUTE MONOCYTE COUNT 0.7 /CUMM (0.10-0.60); BASOPHIL % 0.5 % (0.0-2.0); EOSINOPHIL % 0.1 % (0-5); HEMATOCRIT 20.5 % (37-47); MEAN CORPUSCULAR HGB 29.5 PG (27.0-31.0); MEAN CORPUSCULAR HGB CONC 33.8 G/DL (33.0-37.0); MEAN CORPUSCULAR VOLUME 87.3 FL (81.0-99.0); MEAN PLATELET VOLUME 8.7 FL (7.4-10.4); PLATELET COUNT 89 /CUMM (130-400); RBC DISTRIBUTION WIDTH 12.7 % (11.5-14.5); RED BLOOD CELL CT 2.35 /CUMM (4.20-5.40); WHITE BLOOD CELL COUNT 8.8 /CUMM (4.8-10.8)
[2018-02-01 05:18] LABS: PT 13.2 SEC (9.4-12.5); PTT 25 SEC (25-37)
--- NOTE | 2018-02-01 05:48 | PN- Neurosurgical ---
Subjective Subjective: Transferred to icu overnight for closer monitoring given the atypical intra- operative blood loss. No overnight events. Serial lab draws reflect anticipated blood loss anemia. Hemovac drain output slowed significantly overnight. The patient did not feel like the clinical law professor was working well for her pain, but feels better after taking tramadol and tylenol this morning. She reports her pre- operative lower extremity symptoms of numbness and tingling are significantly better. She has not been out of bed yet, but currently denies dizziness. No shortness of breath. No chest pains. No nausea. Tolerating clears. Objective Vital Signs and I&Os Vital Signs Date Time Temp Pulse Resp B/P B/P Pulse O2 O2 Flow FiO2 Mean Ox Delivery Rate 02/01 0400 98.2 98 20 110/60 98 Room Air 02/01 0400 96 Room Air 02/01 0312 93 97 02/01 0300 94 10 111/46 02/01 0200 96 12 110/55 02/01 0007 96 95 02/01 0000 97.3 94 16 118/70 02/01 0000 96 CPAP 02/01 0000 97.3 94 16 118/70 96 CPAP 2.5L 01/31 2235 80 98 01/31 2151 Nasal 2.0L Cannula 01/31 2025 98.5 113 9 112/76 100 Nasal Cannula 01/31 2015 98.2 99 12 112/76 100 Nasal 2.0L Cannula 01/31 1950 110 12 108/80 99 Nasal 2.0L Cannula 01/31 1930 98.5 113 9 100/58 99 Nasal 2.0L Cannula 01/31 1825 98.5 112 9 115/55 01/31 182 98.5 112 9 115/55 99 Nasal 2.0L Cannula 01/31 182 99 Nasal 2.0L Cannula Intake & Output 02/01 0800 02/01 0000 01/31 1600 01/31 0800 01/31 0000 01/30 1600 Intake Total 1060 Output Total 100 Balance 960 Intake, IV 760 Intake, Oral 300 Output, 100 Drainage Patient 199 lb 192 lb Weight Weight Bed scale Bed scale Measurement Method Physical Exam: General - alert & oriented x 3. comfortable. no acute distress. Lungs - clear bilaterally. no w/r/r. Cardiac - s1s2. reg, heart rate 90s Abdomen - soft. nontender. Lumbar - dressings stained, but intact. hemovac drained 125mls bloody drainage overnight. - jerez draining clear, yellow urine (620mls overnight) Extremities - warm bilaterally. no c/c/e. calves soft and nontender b/l. teds in place. athrombic pumps active b/l. sensation grossly equal. strong DF/PF/EHL bilaterally (5/5). Current Medications: Current Medications Sig/Adair Start time Last Medication Dose Route Stop Time Status Admin Acetaminophen 1,000 MG Q6H 01/31 2300 AC 02/01 N/A 1 UNIT IV 02/01 1714 0454 Acetaminophen 1,000 MG Q6H 01/31 2030 DC 01/31 N/A 1 UNIT IV 02/01 1444 2245 Acetaminophen 650 MG Q4P PRN 01/31 1815 DC PO Acetaminophen 1,000 MG .STK-MED ONE 01/31 0756 DC IV 01/31 0757 Albuterol Sulfate 2 PUF Q4P PRN 01/31 2030 AC INH Atorvastatin Calcium 10 MG 1700 02/01 1700 AC PO Bisacodyl 10 MG DAILY NEEDED PRN 01/31 1830 AC MN Budesonide/ 2 PUF BID 01/31 2100 AC 01/31 Formoterol Fumarate INH 2219 Cefazolin Sodium 2 GM Q8H 01/31 2100 AC 02/01 N/A 1 UNIT IV 02/02 0529 0500 Cefazolin Sodium 2,000 MG ONCE 01/31 0000 DC IV 01/31 2359 Diazepam 5 MG Q8P PRN 01/31 1830 AC PO Docusate Sodium 100 MG TID 01/31 2100 AC PO Fentanyl Citrate 250 MCG .STK-MED ONE 01/31 0755 DC IM 01/31 0756 Haloperidol 5 MG .STK-MED ONE 01/31 1627 DC IM 01/31 1628 Heparin Sodium 5,000 UNIT Q8 02/01 0600 CAN (Porcine) SC Hydromorphone HCl 1 MG Q4-6 PRN PRN 02/01 0315 AC IV PUSH Hydromorphone HCl 1 MG Q4P PRN 01/31 1830 DC IV Hydromorphone HCl 50 MG Q24H PRN 01/31 1545 DC Sodium Chloride 45 ML IV Hydromorphone HCl 2 MG .STK-MED ONE 01/31 0755 DC IM 01/31 0756 Ketorolac 15 MG Q6P PRN 01/31 1815 DC Tromethamine IV 02/05 181 Losartan Potassium 100 MG DAILY 02/02 0900 AC PO Midazolam HCl 2 MG .STK-MED ONE 01/31 0756 DC IM 01/31 0757 Montelukast Sodium 10 MG AT BEDTIME 01/31 2100 AC 01/31 PO 2218 Ondansetron HCl 4 MG Q6P PRN 01/31 181 AC IV Oxycodone/ 2 TAB Q4P PRN 01/31 181 DC Acetaminophen PO Remifentanil 1 MG .STK-MED ONE 01/31 1350 DC IV 01/31 1351 Remifentanil 2 MG .STK-MED ONE 01/31 0951 DC IV 01/31 0952 Remifentanil 5 MG .STK-MED ONE 01/31 0755 DC IV 01/31 0756 Senna 374 MG QPM PRN 01/31 181 AC PO Sodium Chloride 500 ML BOLUS ONE 01/31 2015 DC 01/31 IV 01/31 Sodium Chloride 1,000 ML Q12H 01/31 1800 r 02/01 IV 02/01 1759 0137 Tramadol HCl 50 MG Q4-6 PRN PRN 01/31 2030 AC PO Tramadol HCl 100 MG Q4-6 PRN PRN 01/31 2030 AC 02/01 PO 0316 Tranexamic Acid 1,000 MG ONCE ONE 01/31 1945 DC 01/31 Sodium Chloride 100 ML IV 01/31 195 1954 Tranexamic Acid 1,000 MG ONCE ONE 01/31 1845 CAN IV 01/31 2000 Trimethobenzamide HCl 200 MG Q6P PRN 01/31 181 AC IM Zolpidem Tartrate 2.5 MG AT BEDTIME NEED.. 01/31 181 AC PO Results Last 48 Hours of Labs: Laboratory Tests 02/01 02/01 0545 0450 Chemistry Sodium Pending Potassium Pending Chloride Pending Carbon Dioxide Pending Anion Gap Pending BUN Pending Creatinine Pending BUN/Creatinine Ratio Pending Creatine Kinase Pending Coagulation PT (9.4 - 12.5 SEC) 13.2 H INR (0.90 - 1.19) 1.21 H APTT (25 - 37 SEC) 25 Hematology CBC w Diff Pending NO MAN DIFF REQ WBC (4.8 - 10.8 /CUMM) Pending 8.8 RBC (4.20 - 5.40 /CUMM) Pending 2.35 L Hgb (12.0 - 16.0 G/DL) Pending 7.0 *L Hct (37 - 47 %) Pending 20.5 L MCV (81.0 - 99.0 FL) Pending 87.3 MCH (27.0 - 31.0 PG) Pending 29.5 MCHC (33.0 - 37.0 G/DL) Pending 33.8 RDW (11.5 - 14.5 %) Pending 12.7 Plt Count (130 - 400 /CUMM) Pending 89 L MPV (7.4 - 10.4 FL) Pending 8.7 Gran % (42.2 - 75.2 %) 78.0 H Lymphocytes % (20.5 - 51.1 %) 13.5 L Monocytes % (1.7 - 9.3 %) 7.9 Eosinophils % (0 - 5 %) 0.1 Basophils % (0.0 - 2.0 %) 0.5 Absolute Granulocytes (1.4 - 6.5 /CUMM) 6.9 H Absolute Lymphocytes (1.2 - 3.4 /CUMM) 1.2 Absolute Monocytes (0.10 - 0.60 /CUMM) 0.7 H Absolute Eosinophils (0.0 - 0.7 /CUMM) 0 Absolute Basophils (0.0 - 0.2 /CUMM) 0 02/01 01/31 0005 1603 Chemistry Sodium (137 - 145 mmol/L) 141 140 Potassium (3.5 - 5.1 mmol/L) 4.1 4.4 Chloride (98 - 107 mmol/L) 109 H 109 H Carbon Dioxide (22 - 30 mmol/L) 25 25 Anion Gap (5 - 16) 7 6 BUN (7 - 17 mg/dL) 17 12 Creatinine (0.5 - 1.0 mg/dL) 1.2 H 0.9 Estimated GFR (>60 ml/min) 46 L > 60 BUN/Creatinine Ratio (7 - 25 %) 14.2 13.3 Creatine Kinase (30 - 135 U/L) 1472 H Coagulation PT (9.4 - 12.5 SEC) 13.4 H INR (0.90 - 1.19) 1.23 H APTT (25 - 37 SEC) 26 Hematology CBC w Diff NO MAN DIFF REQ WBC (4.8 - 10.8 /CUMM) 12.1 H RBC (4.20 - 5.40 /CUMM) 2.72 L Hgb (12.0 - 16.0 G/DL) 8.1 L Hct (37 - 47 %) 23.5 L MCV (81.0 - 99.0 FL) 86.7 MCH (27.0 - 31.0 PG) 29.8 MCHC (33.0 - 37.0 G/DL) 34.3 RDW (11.5 - 14.5 %) 12.7 Plt Count (130 - 400 /CUMM) 102 L MPV (7.4 - 10.4 FL) 8.9 Gran % (42.2 - 75.2 %) 85.7 H Lymphocytes % (20.5 - 51.1 %) 6.8 L Monocytes % (1.7 - 9.3 %) 7.3 Eosinophils % (0 - 5 %) 0 Basophils % (0.0 - 2.0 %) 0.2 Absolute Granulocytes (1.4 - 6.5 /CUMM) 10.4 H Absolute Lymphocytes (1.2 - 3.4 /CUMM) 0.8 L Absolute Monocytes (0.10 - 0.60 /CUMM) 0.9 H Absolute Eosinophils (0.0 - 0.7 /CUMM) 0 Absolute Basophils (0.0 - 0.2 /CUMM) 0 01/31 01/31 1555 1535 Coagulation PT (9.4 - 12.5 SEC) 14.4 H INR (0.90 - 1.19) 1.32 H APTT (25 - 37 SEC) 42 H Urines Urinalysis MOD H Urine Color (YEL,AMB,STR) BROWN H Urine Clarity (CLEAR) CLDY H Urine pH (5.0 - 8.0) 6.5 Ur Specific [place] (1.001 - 1.035) 1.015 Urine Protein (NEG,<30 MG/DL) 100 H Urine Ketones (NEG) TRACE H Urine Nitrite (NEG) POS H Urine Bilirubin (NEG) NEG@ICTO Urine Urobilinogen (0.1 - 1.0 EU/dl) 0.2 Ur Leukocyte Esterase (NEG) NEG Ur Microscopic SEDIMENT EXAMINED Urine RBC (0 - 5 /HPF) RARE Urine WBC (0 - 2 /HPF) RARE Ur Epithelial Cells (NONE,FEW) RARE Urine Bacteria (NEG/NONE) FEW H Urine Hemoglobin (NEG) LARGE H Urine Glucose (N MG/DL) NEG 01/31 01/31 1511 1232 Hematology CBC w Diff MAN DIFF ORDERED MAN DIFF ORDERED WBC (4.8 - 10.8 /CUMM) 15.3 H 8.4 RBC (4.20 - 5.40 /CUMM) 3.82 L 4.18 L Hgb (12.0 - 16.0 G/DL) 11.3 L 12.4 Hct (37 - 47 %) 33.1 L 36.0 L MCV (81.0 - 99.0 FL) 86.5 86.1 MCH (27.0 - 31.0 PG) 29.4 29.7 MCHC (33.0 - 37.0 G/DL) 34.0 34.5 RDW (11.5 - 14.5 %) 12.5 12.1 Plt Count (130 - 400 /CUMM) 116 L 125 L MPV (7.4 - 10.4 FL) 8.3 8.9 Gran % (42.2 - 75.2 %) 91.9 H 90.2 H Lymphocytes % (20.5 - 51.1 %) 5.5 L 6.8 L Monocytes % (1.7 - 9.3 %) 2.1 2.4 Eosinophils % (0 - 5 %) 0.1 0.4 Basophils % (0.0 - 2.0 %) 0.4 0.2 Absolute Granulocytes (1.4 - 6.5 /CUMM) 14.0 H 7.6 H Segmented Neutrophils (42.2 - 75.2 %) 86 H Band Neutrophils (0.0 - 5.0 %) 5 Absolute Lymphocytes (1.2 - 3.4 /CUMM) 0.8 L 0.6 L Lymphocytes (20.5 - 51.1 %) 6 L Monocytes (1.7 - 9.3 %) 3 Absolute Monocytes (0.10 - 0.60 /CUMM) 0.3 0.2 Absolute Eosinophils (0.0 - 0.7 /CUMM) 0 0 Absolute Basophils (0.0 - 0.2 /CUMM) 0.1 0 Platelet Estimate (ADEQUATE) VERIFIED BY SMEAR DECREASED Normocytic RBCs VERIFIED VERIFIED Normochromic RBCs VERIFIED VERIFIED Assessment/Plan Assessment/Plan This 57 year old female hx of Hodgkin lymph chemo and radiation htn,hdl,asthma, c3-7 fusion, is POD#1 s/p TLIF L3-S1 for history of L3/4, L4/5, L5/S1 spondylolisthesis, stenosis, DDD, with significant unexpected blood loss during the operation s/p cell saver reinfusion of 1500mls in combination, s/p ffp transfused during surgery due to significant unexpected bleeding, and TXA transfused post-operatively to assist with ongoing blood loss appreciated from her hemovac drain, transfer to icu overnight for close observation, anticipated acute blood loss anemia with slightly worsening thrombocytopenia overnight by serial lab draws tolerating clears. will decrease iv fluids iv tylenol / tramadol / iv dilaudid prn breakthrough pain continue iv ancef while hemovac drain in place f/u repeat labs may consider hematology consult if worsening thrombocytopenia or coagulopathy hold heparin sc until evidence of bleeding has stopped d/c jerez catheter will monitor hemovac drain ALPS / TEDS in place TRC / IST hold losartan in setting of hypotension overnight resume home meds (albuterol, singulair, advair, atorvastatin, tramadol) will d/w Core Measures Venous Thromboembolism VTE Risk Factors Surgery No Mechanical VTE Prophylaxis d/t N/A MechProphylax Ordered No VTE Pharm Prophylaxis d/t Bleeding (Active)
[2018-02-01 05:59] LABS: ABSOLUTE BASOPHIL COUNT 0.1 /CUMM (0.0-0.2); ABSOLUTE EOSINOPHIL COUNT 0 /CUMM (0.0-0.7); ABSOLUTE GRANULOCYTE CT 6.6 /CUMM (1.4-6.5); ABSOLUTE LYMPH COUNT 1.4 /CUMM (1.2-3.4); ABSOLUTE MONOCYTE COUNT 0.8 /CUMM (0.10-0.60); BASOPHIL % 0.6 % (0.0-2.0); EOSINOPHIL % 0.1 % (0-5); HEMATOCRIT 20.1 % (37-47); MEAN CORPUSCULAR HGB 29.2 PG (27.0-31.0); MEAN CORPUSCULAR HGB CONC 33.4 G/DL (33.0-37.0); MEAN CORPUSCULAR VOLUME 87.4 FL (81.0-99.0); MEAN PLATELET VOLUME 8.4 FL (7.4-10.4); PLATELET COUNT 85 /CUMM (130-400); RBC DISTRIBUTION WIDTH 12.7 % (11.5-14.5); WHITE BLOOD CELL COUNT 8.9 /CUMM (4.8-10.8)
--- NOTE | 2018-02-01 07:44 | Cons- Hematology ---
General Information and HPI Consulting Request Date of Consult: 02/01/18 Requested By: Jim FLOOD,Karyna Robert History of Present Illness: Asked to see this 57-year-old woman underwent disc surgery yesterday. Patient was noted to have increased bleeding from the time of initial incision. No hemodynamic instability was noted in the operating room. The patient has a previous history of Hodgkin's disease history combined modality therapy. Patient has had a low white blood count in the past due to combined therapy. CBC preoperatively obtained and was normal save for a slightly low white blood count. Preoperatively the patient has felt well. Currently she has no major complaints. Allergies/Medications Allergies: Coded Allergies: bleomycin (FEVER, INCREASED BP, HOSPITALIZED 01/25/18) Home Med List: Albuterol Sulfate (Proair Hfa) 90 MCG HFA.AER.AD 2 PUF INH 4XDAILY PRN RESP. (Reported) Aspirin (Ecotrin*) 81 MG TABLET.DR 1 TAB PO DAILY HEART/BLOOD (Reported) Atorvastatin Calcium 10 MG TABLET 1 TAB PO DAILY CHOLESTEROL (Reported) Chlorthalidone 25 MG TABLET 0.5 TAB PO DAILY DIURETIC (Reported) Fluticasone/Salmeterol (Advair 250-50 Diskus) 250 MCG-50 MCG/DOSE BLST.W.DEV 1 PUF INH BID ASTHMA (Reported) Losartan Potassium 100 MG TABLET 1 TAB PO DAILY BP (Reported) Montelukast Sodium 10 MG TABLET 1 TAB PO DAILY ALLERGIES (Reported) Tramadol HCl 50 MG TABLET 2 TAB PO 4XDAILY PRN PAIN (Reported) Current Medications: Current Medications Sig/[place]air Start time Last Medication Dose Route Stop Time Status Admin Acetaminophen 1,000 MG Q6H 01/31 2300 AC 02/01 N/A 1 UNIT IV 02/01 1714 0454 Acetaminophen 1,000 MG Q6H 01/31 2030 DC 01/31 N/A 1 UNIT IV 02/01 1444 2245 Acetaminophen 650 MG Q4P PRN 01/31 1815 DC PO Acetaminophen 1,000 MG .STK-MED ONE 01/31 0756 DC IV 01/31 0757 Albuterol Sulfate 2 PUF Q4P PRN 01/31 2030 AC INH Atorvastatin Calcium 10 MG 1700 02/01 1700 AC PO Bisacodyl 10 MG DAILY NEEDED PRN 01/31 1830 AC AR Budesonide/ 2 PUF BID 01/31 2100 AC 01/31 Formoterol Fumarate INH 2219 Cefazolin Sodium 2 GM Q8H 01/31 2100 AC 02/01 N/A 1 UNIT IV 02/02 0529 0500 Cefazolin Sodium 2,000 MG ONCE 01/31 0000 DC IV 01/31 2359 Diazepam 5 MG Q8P PRN 01/31 1830 AC PO Docusate Sodium 100 MG TID 01/31 2100 AC PO Fentanyl Citrate 250 MCG .STK-MED ONE 01/31 0755 DC IM 01/31 0756 Haloperidol 5 MG .STK-MED ONE 01/31 1627 DC IM 01/31 1628 Heparin Sodium 5,000 UNIT Q8 02/01 0600 CAN (Porcine) SC Hydromorphone HCl 1 MG Q4-6 PRN PRN 02/01 0315 AC IV PUSH Hydromorphone HCl 1 MG Q4P PRN 01/31 1830 DC IV Hydromorphone HCl 50 MG Q24H PRN 01/31 1545 DC Sodium Chloride 45 ML IV Hydromorphone HCl 2 MG .STK-MED ONE 01/31 0755 DC IM 01/31 0756 Ketorolac 15 MG Q6P PRN 01/31 1815 DC Tromethamine IV 02/05 1814 Losartan Potassium 100 MG DAILY 02/02 0900 AC PO Midazolam HCl 2 MG .STK-MED ONE 01/31 0756 DC IM 01/31 0757 Montelukast Sodium 10 MG AT BEDTIME 01/31 2100 AC 01/31 PO 2218 Ondansetron HCl 4 MG Q6P PRN 01/31 1815 AC IV Oxycodone/ 2 TAB Q4P PRN 01/31 1815 DC Acetaminophen PO Remifentanil 1 MG .STK-MED ONE 01/31 1350 DC IV 01/31 1351 Remifentanil 2 MG .STK-MED ONE 01/31 0951 DC IV 01/31 0952 Remifentanil 5 MG .STK-MED ONE 01/31 0755 DC IV 01/31 0756 Senna 374 MG QPM PRN 01/31 1815 AC PO Sodium Chloride 500 ML BOLUS ONE 01/31 2015 DC 01/31 IV 01/31 2114 2002 Sodium Chloride 1,000 ML Q12H 01/31 1800 DC 02/01 IV 02/01 1759 0137 Tramadol HCl 50 MG Q4-6 PRN PRN 01/31 2030 AC PO Tramadol HCl 100 MG Q4-6 PRN PRN 01/31 2030 AC 02/01 PO 0316 Tranexamic Acid 1,000 MG ONCE ONE 01/31 1945 DC 01/31 Sodium Chloride 100 ML IV 01/31 Tranexamic Acid 1,000 MG ONCE ONE 01/31 184 CAN IV 02/01 2000 Trimethobenzamide HCl 200 MG Q6P PRN 01/31 1815 AC IM Zolpidem Tartrate 2.5 MG AT BEDTIME NEED.. 01/31 1815 AC PO The patient has already received FFP and tranexamic acid. Review of Systems Review of Systems: Patient denies headaches or dizziness. Patient denies fever or chills. Patient denies shortness of breath cough chest pain or hemoptysis. Denies nausea vomiting or abdominal pain. Patient denies dysuria hematuria. 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 Home Smoking Status: Never Smoked Exam & Diagnostic Data Vital Signs and I&O Vital Signs Date Time Temp Pulse Resp B/P B/P Pulse O2 O2 Flow FiO2 Mean Ox Delivery Rate 02/01 0400 98.2 98 20 110/60 98 Room Air 02/01 0400 96 Room Air 02/01 0312 93 97 02/01 0300 94 10 111/46 02/01 0200 96 12 110/55 02/01 0007 96 95 02/01 0000 97.3 94 16 118/70 02/01 0000 96 CPAP 02/01 0000 97.3 94 16 118/70 96 CPAP 2.5L 01/315 80 98 01/31 2151 Nasal 2.0L Cannula 01/31 2025 98.5 113 9 112/76 100 Nasal Cannula 01/31 2015 98.2 99 12 112/76 100 Nasal 2.0L Cannula 01/31 1950 110 12 108/80 99 Nasal 2.0L Cannula 01/31 1930 98.5 113 9 100/58 99 Nasal 2.0L Cannula 01/31 1825 98.5 112 9 115/55 01/31 1825 98.5 112 9 115/55 99 Nasal 2.0L Cannula 01/31 1825 99 Nasal 2.0L Cannula Intake & Output 02/01 0800 02/01 0000 01/31 1600 Intake Total 1342 1060 Output Total 745 100 Balance 597 960 Intake, IV 1067 760 Intake, Oral 275 300 Number 0 Bowel Movements Output, 125 100 Drainage Output, Urine 620 Patient 199 lb 192 lb Weight Weight Bed scale Bed scale Measurement Method Gen.: in NAD ENT: Sclera anicteric Chest: Normal respiratory effort, clear breath sounds Cor: RRR, no extra sounds Abdomen: Soft, bowel sounds present, no tenderness, no rebound Extremities: Without clubbing, cyanosis, or asymmetric edema Neurology: Alert and oriented 3, no gross deficit Skin: No rashes Last 48 Hours of Lab Results: Laboratory Tests 02/01 02/01 0545 0450 Chemistry Sodium (137 - 145 mmol/L) 140 Potassium (3.5 - 5.1 mmol/L) 3.9 Chloride (98 - 107 mmol/L) 109 H Carbon Dioxide (22 - 30 mmol/L) 26 Anion Gap (5 - 16) 5 BUN (7 - 17 mg/dL) 20 H Creatinine (0.5 - 1.0 mg/dL) 1.2 H Estimated GFR (>60 ml/min) 46 L BUN/Creatinine Ratio (7 - 25 %) 16.7 Creatine Kinase (30 - 135 U/L) 4299 H Coagulation PT (9.4 - 12.5 SEC) 13.2 H INR (0.90 - 1.19) 1.21 H APTT (25 - 37 SEC) 25 Hematology CBC w Diff NO MAN DIFF REQ NO MAN DIFF REQ WBC (4.8 - 10.8 /CUMM) 8.9 8.8 RBC (4.20 - 5.40 /CUMM) 2.30 L 2.35 L Hgb (12.0 - 16.0 G/DL) 6.7 *L 7.0 *L Hct (37 - 47 %) 20.1 L 20.5 L MCV (81.0 - 99.0 FL) 87.4 87.3 MCH (27.0 - 31.0 PG) 29.2 29.5 MCHC (33.0 - 37.0 G/DL) 33.4 33.8 RDW (11.5 - 14.5 %) 12.7 12.7 Plt Count (130 - 400 /CUMM) 85 L 89 L MPV (7.4 - 10.4 FL) 8.4 8.7 Gran % (42.2 - 75.2 %) 75.0 78.0 H Lymphocytes % (20.5 - 51.1 %) 15.6 L 13.5 L Monocytes % (1.7 - 9.3 %) 8.7 7.9 Eosinophils % (0 - 5 %) 0.1 0.1 Basophils % (0.0 - 2.0 %) 0.6 0.5 Absolute Granulocytes (1.4 - 6.5 /CUMM) 6.6 H 6.9 H Absolute Lymphocytes (1.2 - 3.4 /CUMM) 1.4 1.2 Absolute Monocytes (0.10 - 0.60 /CUMM) 0.8 H 0.7 H Absolute Eosinophils (0.0 - 0.7 /CUMM) 0 0 Absolute Basophils (0.0 - 0.2 /CUMM) 0.1 0 /20 06/19 0005 1603 Chemistry Sodium (137 - 145 mmol/L) 141 140 Potassium (3.5 - 5.1 mmol/L) 4.1 4.4 Chloride (98 - 107 mmol/L) 109 H 109 H Carbon Dioxide (22 - 30 mmol/L) 25 25 Anion Gap (5 - 16) 7 6 BUN (7 - 17 mg/dL) 17 12 Creatinine (0.5 - 1.0 mg/dL) 1.2 H 0.9 Estimated GFR (>60 ml/min) 46 L > 60 BUN/Creatinine Ratio (7 - 25 %) 14.2 13.3 Creatine Kinase (30 - 135 U/L) 1472 H Coagulation PT (9.4 - 12.5 SEC) 13.4 H INR (0.90 - 1.19) 1.23 H APTT (25 - 37 SEC) 26 Hematology CBC w Diff NO MAN DIFF REQ WBC (4.8 - 10.8 /CUMM) 12.1 H RBC (4.20 - 5.40 /CUMM) 2.72 L Hgb (12.0 - 16.0 G/DL) 8.1 L Hct (37 - 47 %) 23.5 L MCV (81.0 - 99.0 FL) 86.7 MCH (27.0 - 31.0 PG) 29.8 MCHC (33.0 - 37.0 G/DL) 34.3 RDW (11.5 - 14.5 %) 12.7 Plt Count (130 - 400 /CUMM) 102 L MPV (7.4 - 10.4 FL) 8.9 Gran % (42.2 - 75.2 %) 85.7 H Lymphocytes % (20.5 - 51.1 %) 6.8 L Monocytes % (1.7 - 9.3 %) 7.3 Eosinophils % (0 - 5 %) 0 Basophils % (0.0 - 2.0 %) 0.2 Absolute Granulocytes (1.4 - 6.5 /CUMM) 10.4 H Absolute Lymphocytes (1.2 - 3.4 /CUMM) 0.8 L Absolute Monocytes (0.10 - 0.60 /CUMM) 0.9 H Absolute Eosinophils (0.0 - 0.7 /CUMM) 0 Absolute Basophils (0.0 - 0.2 /CUMM) 0 01/31 01/31 1555 1535 Coagulation PT (9.4 - 12.5 SEC) 14.4 H INR (0.90 - 1.19) 1.32 H APTT (25 - 37 SEC) 42 H Urines Urinalysis MOD H Urine Color (YEL,AMB,STR) BROWN H Urine Clarity (CLEAR) CLDY H Urine pH (5.0 - 8.0) 6.5 Ur Specific [place] (1.001 - 1.035) 1.015 Urine Protein (NEG,<30 MG/DL) 100 H Urine Ketones (NEG) TRACE H Urine Nitrite (NEG) POS H Urine Bilirubin (NEG) NEG@ICTO Urine Urobilinogen (0.1 - 1.0 EU/dl) 0.2 Ur Leukocyte Esterase (NEG) NEG Ur Microscopic SEDIMENT EXAMINED Urine RBC (0 - 5 /HPF) RARE Urine WBC (0 - 2 /HPF) RARE Ur Epithelial Cells (NONE,FEW) RARE Urine Bacteria (NEG/NONE) FEW H Urine Hemoglobin (NEG) LARGE H Urine Glucose (N MG/DL) NEG 01/31 01/31 1511 1232 Hematology CBC w Diff MAN DIFF ORDERED MAN DIFF ORDERED WBC (4.8 - 10.8 /CUMM) 15.3 H 8.4 RBC (4.20 - 5.40 /CUMM) 3.82 L 4.18 L Hgb (12.0 - 16.0 G/DL) 11.3 L 12.4 Hct (37 - 47 %) 33.1 L 36.0 L MCV (81.0 - 99.0 FL) 86.5 86.1 MCH (27.0 - 31.0 PG) 29.4 29.7 MCHC (33.0 - 37.0 G/DL) 34.0 34.5 RDW (11.5 - 14.5 %) 12.5 12.1 Plt Count (130 - 400 /CUMM) 116 L 125 L MPV (7.4 - 10.4 FL) 8.3 8.9 Gran % (42.2 - 75.2 %) 91.9 H 90.2 H Lymphocytes % (20.5 - 51.1 %) 5.5 L 6.8 L Monocytes % (1.7 - 9.3 %) 2.1 2.4 Eosinophils % (0 - 5 %) 0.1 0.4 Basophils % (0.0 - 2.0 %) 0.4 0.2 Absolute Granulocytes (1.4 - 6.5 /CUMM) 14.0 H 7.6 H Segmented Neutrophils (42.2 - 75.2 %) 86 H Band Neutrophils (0.0 - 5.0 %) 5 Absolute Lymphocytes (1.2 - 3.4 /CUMM) 0.8 L 0.6 L Lymphocytes (20.5 - 51.1 %) 6 L Monocytes (1.7 - 9.3 %) 3 Absolute Monocytes (0.10 - 0.60 /CUMM) 0.3 0.2 Absolute Eosinophils (0.0 - 0.7 /CUMM) 0 0 Absolute Basophils (0.0 - 0.2 /CUMM) 0.1 0 Platelet Estimate (ADEQUATE) VERIFIED BY SMEAR DECREASED Normocytic RBCs VERIFIED VERIFIED Normochromic RBCs VERIFIED VERIFIED Assessment/Plan Assessment: Anemia/thrombocytopenia-patient had significant bleeding operating room to explain her anemia. Patient does have modest thrombocytopenia and is currently receiving a platelet transfusion. It is unclear as to the etiology of her acute hematologic issues. History does not suggest a thrombocytopathy and the patient discontinued her aspirin preoperatively. Currently the patient's tube change from her operative site is minimal. History does not suggest an intercurrent process such as infection or new medication that would affect her hemogram Recommend- Transfuse red blood cells Platelets now transfusing Obtain a repeat PT PTT Check fibrinogen level Follow CBC Recommendations: .. Consult Acknowledgment - Thank you for your consult request.
--- NOTE | 2018-02-01 07:51 | PN- Neurosurgical ---
Subjective Subjective: Pt c/o incisional LBP this am. Reports improved sensation bilat LE c/w preop. Objective Vital Signs and I&Os Vital Signs Date Time Temp Pulse Resp B/P B/P Pulse O2 O2 Flow FiO2 Mean Ox Delivery Rate 02/01 0400 98.2 98 20 110/60 98 Room Air 02/01 0400 96 Room Air 02/01 0312 93 97 02/01 0300 94 10 111/46 02/01 0200 96 12 110/55 02/01 0007 96 95 02/01 0000 97.3 94 16 118/70 02/01 0000 96 CPAP 02/01 0000 97.3 94 16 118/70 96 CPAP 2.5L 01/31 2235 80 98 01/31 2151 Nasal 2.0L Cannula 01/31 2025 98.5 113 9 112/76 100 Nasal Cannula 01/31 2015 98.2 99 12 112/76 100 Nasal 2.0L Cannula 01/31 1950 110 12 108/80 99 Nasal 2.0L Cannula 01/31 1930 98.5 113 9 100/58 99 Nasal 2.0L Cannula 01/31 182 98.5 112 9 115/55 01/31 1825 98.5 112 9 115/55 99 Nasal 2.0L Cannula 01/31 1825 99 Nasal 2.0L Cannula Intake & Output 02/01 0800 02/01 0000 01/31 1600 01/31 0800 01/31 0000 01/30 1600 Intake Total 1342 1060 Output Total 745 100 Balance 597 960 Intake, IV 1067 760 Intake, Oral 275 300 Number 0 Bowel Movements Output, 125 100 Drainage Output, Urine 620 Patient 90.208 kg 87.09 kg Weight Weight Bed scale Bed scale Measurement Method Physical Exam: AF, VSS mildly tachy awake and alert, oriented and conversive, appropriate HV with 125, 100cc last 2 shifts serosanguinous normal motor and sensory exam bilat LE incision with sanguinous stain on bandages, no change from PACU and no additional bleeding abd soft calves nontender, SCD's in place Current Medications: Current Medications Sig/[place] Start time Last Medication Dose Route Stop Time Status Admin Acetaminophen 1,000 MG Q6H 01/31 2300 AC 02/01 N/A 1 UNIT IV 02/01 1714 0454 Acetaminophen 1,000 MG Q6H 01/31 2030 DC 01/31 N/A 1 UNIT IV 02/01 1444 2245 Acetaminophen 650 MG Q4P PRN 01/31 1815 DC PO Acetaminophen 1,000 MG .STK-MED ONE 01/31 0756 DC IV 01/31 0757 Albuterol Sulfate 2 PUF Q4P PRN 01/31 2030 AC INH Atorvastatin Calcium 10 MG 1700 02/01 1700 AC PO Bisacodyl 10 MG DAILY NEEDED PRN 01/31 1830 AC [place] Budesonide/ 2 PUF BID 01/31 2100 AC 01/31 Formoterol Fumarate INH 2219 Cefazolin Sodium 2 GM Q8H 01/31 2100 AC 02/01 N/A 1 UNIT IV 02/02 0529 0500 Cefazolin Sodium 2,000 MG ONCE 01/31 0000 DC IV 01/31 2359 Diazepam 5 MG Q8P PRN 01/31 1830 AC PO Docusate Sodium 100 MG TID 01/31 2100 AC PO Fentanyl Citrate 250 MCG .STK-MED ONE 01/31 0755 DC IM 01/31 0756 Haloperidol 5 MG .STK-MED ONE 01/31 1627 DC IM 01/31 1628 Heparin Sodium 5,000 UNIT Q8 02/01 0600 CAN (Porcine) SC Hydromorphone HCl 1 MG Q4-6 PRN PRN 02/01 0315 AC IV PUSH Hydromorphone HCl 1 MG Q4P PRN 01/31 1830 DC IV Hydromorphone HCl 50 MG Q24H PRN 01/31 1545 DC Sodium Chloride 45 ML IV Hydromorphone HCl 2 MG .STK-MED ONE 01/31 0755 DC IM 01/31 0756 Ketorolac 15 MG Q6P PRN 01/31 1815 DC Tromethamine IV 02/05 1814 Losartan Potassium 100 MG DAILY 02/02 0900 AC PO Midazolam HCl 2 MG .STK-MED ONE 01/31 0756 DC IM 01/31 0757 Montelukast Sodium 10 MG AT BEDTIME 01/31 2100 AC 01/31 PO 2218 Ondansetron HCl 4 MG Q6P PRN 01/31 1815 AC IV Oxycodone/ 2 TAB Q4P PRN 01/31 1815 DC Acetaminophen PO Remifentanil 1 MG .STK-MED ONE 01/31 1350 DC IV 01/31 1351 Remifentanil 2 MG .STK-MED ONE 01/31 0951 DC IV 01/31 0952 Remifentanil 5 MG .STK-MED ONE 01/31 0755 DC IV 01/31 0756 Senna 374 MG QPM PRN 01/31 181 AC PO Sodium Chloride 500 ML BOLUS ONE 01/31 2015 DC 01/31 IV 01/31 Sodium Chloride 1,000 ML Q12H 01/31 1800 DC 02/01 IV 02/01 1759 0137 Tramadol HCl 50 MG Q4-6 PRN PRN 01/31 2030 AC PO Tramadol HCl 100 MG Q4-6 PRN PRN 01/31 2030 AC 02/01 PO 0316 Tranexamic Acid 1,000 MG ONCE ONE 01/31 194 DC 01/31 Sodium Chloride 100 ML IV 01/31 Tranexamic Acid 1,000 MG ONCE ONE 01/31 1845 CAN IV 01/31 2000 Trimethobenzamide HCl 200 MG Q6P PRN 01/31 1815 AC IM Zolpidem Tartrate 2.5 MG AT BEDTIME NEED.. 01/31 1815 AC PO Results Last 48 Hours of Labs: Laboratory Tests 02/01 02/01 0545 0450 Chemistry Sodium (137 - 145 mmol/L) 140 Potassium (3.5 - 5.1 mmol/L) 3.9 Chloride (98 - 107 mmol/L) 109 H Carbon Dioxide (22 - 30 mmol/L) 26 Anion Gap (5 - 16) 5 BUN (7 - 17 mg/dL) 20 H Creatinine (0.5 - 1.0 mg/dL) 1.2 H Estimated GFR (>60 ml/min) 46 L BUN/Creatinine Ratio (7 - 25 %) 16.7 Creatine Kinase (30 - 135 U/L) 4299 H Coagulation PT (9.4 - 12.5 SEC) 13.2 H INR (0.90 - 1.19) 1.21 H APTT (25 - 37 SEC) 25 Hematology CBC w Diff NO MAN DIFF REQ NO MAN DIFF REQ WBC (4.8 - 10.8 /CUMM) 8.9 8.8 RBC (4.20 - 5.40 /CUMM) 2.30 L 2.35 L Hgb (12.0 - 16.0 G/DL) 6.7 *L 7.0 *L Hct (37 - 47 %) 20.1 L 20.5 L MCV (81.0 - 99.0 FL) 87.4 87.3 MCH (27.0 - 31.0 PG) 29.2 29.5 MCHC (33.0 - 37.0 G/DL) 33.4 33.8 RDW (11.5 - 14.5 %) 12.7 12.7 Plt Count (130 - 400 /CUMM) 85 L 89 L MPV (7.4 - 10.4 FL) 8.4 8.7 Gran % (42.2 - 75.2 %) 75.0 78.0 H Lymphocytes % (20.5 - 51.1 %) 15.6 L 13.5 L Monocytes % (1.7 - 9.3 %) 8.7 7.9 Eosinophils % (0 - 5 %) 0.1 0.1 Basophils % (0.0 - 2.0 %) 0.6 0.5 Absolute Granulocytes (1.4 - 6.5 /CUMM) 6.6 H 6.9 H Absolute Lymphocytes (1.2 - 3.4 /CUMM) 1.4 1.2 Absolute Monocytes (0.10 - 0.60 /CUMM) 0.8 H 0.7 H Absolute Eosinophils (0.0 - 0.7 /CUMM) 0 0 Absolute Basophils (0.0 - 0.2 /CUMM) 0.1 0 02/01 01/31 0005 1603 Chemistry Sodium (137 - 145 mmol/L) 141 140 Potassium (3.5 - 5.1 mmol/L) 4.1 4.4 Chloride (98 - 107 mmol/L) 109 H 109 H Carbon Dioxide (22 - 30 mmol/L) 25 25 Anion Gap (5 - 16) 7 6 BUN (7 - 17 mg/dL) 17 12 Creatinine (0.5 - 1.0 mg/dL) 1.2 H 0.9 Estimated GFR (>60 ml/min) 46 L > 60 BUN/Creatinine Ratio (7 - 25 %) 14.2 13.3 Creatine Kinase (30 - 135 U/L) 1472 H Coagulation PT (9.4 - 12.5 SEC) 13.4 H INR (0.90 - 1.19) 1.23 H APTT (25 - 37 SEC) 26 Hematology CBC w Diff NO MAN DIFF REQ WBC (4.8 - 10.8 /CUMM) 12.1 H RBC (4.20 - 5.40 /CUMM) 2.72 L Hgb (12.0 - 16.0 G/DL) 8.1 L Hct (37 - 47 %) 23.5 L MCV (81.0 - 99.0 FL) 86.7 MCH (27.0 - 31.0 PG) 29.8 MCHC (33.0 - 37.0 G/DL) 34.3 RDW (11.5 - 14.5 %) 12.7 Plt Count (130 - 400 /CUMM) 102 L MPV (7.4 - 10.4 FL) 8.9 Gran % (42.2 - 75.2 %) 85.7 H Lymphocytes % (20.5 - 51.1 %) 6.8 L Monocytes % (1.7 - 9.3 %) 7.3 Eosinophils % (0 - 5 %) 0 Basophils % (0.0 - 2.0 %) 0.2 Absolute Granulocytes (1.4 - 6.5 /CUMM) 10.4 H Absolute Lymphocytes (1.2 - 3.4 /CUMM) 0.8 L Absolute Monocytes (0.10 - 0.60 /CUMM) 0.9 H Absolute Eosinophils (0.0 - 0.7 /CUMM) 0 Absolute Basophils (0.0 - 0.2 /CUMM) 0 01/31 01/31 1555 1535 Coagulation PT (9.4 - 12.5 SEC) 14.4 H INR (0.90 - 1.19) 1.32 H APTT (25 - 37 SEC) 42 H Urines Urinalysis MOD H Urine Color (YEL,AMB,STR) BROWN H Urine Clarity (CLEAR) CLDY H Urine pH (5.0 - 8.0) 6.5 Ur Specific [place] (1.001 - 1.035) 1.015 Urine Protein (NEG,<30 MG/DL) 100 H Urine Ketones (NEG) TRACE H Urine Nitrite (NEG) POS H Urine Bilirubin (NEG) NEG@ICTO Urine Urobilinogen (0.1 - 1.0 EU/dl) 0.2 Ur Leukocyte Esterase (NEG) NEG Ur Microscopic SEDIMENT EXAMINED Urine RBC (0 - 5 /HPF) RARE Urine WBC (0 - 2 /HPF) RARE Ur Epithelial Cells (NONE,FEW) RARE Urine Bacteria (NEG/NONE) FEW H Urine Hemoglobin (NEG) LARGE H Urine Glucose (N MG/DL) NEG 01/31 01/31 1511 1232 Hematology CBC w Diff MAN DIFF ORDERED MAN DIFF ORDERED WBC (4.8 - 10.8 /CUMM) 15.3 H 8.4 RBC (4.20 - 5.40 /CUMM) 3.82 L 4.18 L Hgb (12.0 - 16.0 G/DL) 11.3 L 12.4 Hct (37 - 47 %) 33.1 L 36.0 L MCV (81.0 - 99.0 FL) 86.5 86.1 MCH (27.0 - 31.0 PG) 29.4 29.7 MCHC (33.0 - 37.0 G/DL) 34.0 34.5 RDW (11.5 - 14.5 %) 12.5 12.1 Plt Count (130 - 400 /CUMM) 116 L 125 L MPV (7.4 - 10.4 FL) 8.3 8.9 Gran % (42.2 - 75.2 %) 91.9 H 90.2 H Lymphocytes % (20.5 - 51.1 %) 5.5 L 6.8 L Monocytes % (1.7 - 9.3 %) 2.1 2.4 Eosinophils % (0 - 5 %) 0.1 0.4 Basophils % (0.0 - 2.0 %) 0.4 0.2 Absolute Granulocytes (1.4 - 6.5 /CUMM) 14.0 H 7.6 H Segmented Neutrophils (42.2 - 75.2 %) 86 H Band Neutrophils (0.0 - 5.0 %) 5 Absolute Lymphocytes (1.2 - 3.4 /CUMM) 0.8 L 0.6 L Lymphocytes (20.5 - 51.1 %) 6 L Monocytes (1.7 - 9.3 %) 3 Absolute Monocytes (0.10 - 0.60 /CUMM) 0.3 0.2 Absolute Eosinophils (0.0 - 0.7 /CUMM) 0 0 Absolute Basophils (0.0 - 0.2 /CUMM) 0.1 0 Platelet Estimate (ADEQUATE) VERIFIED BY SMEAR DECREASED Normocytic RBCs VERIFIED VERIFIED Normochromic RBCs VERIFIED VERIFIED Assessment/Plan Assessment/Plan Pt POD1 s/p L3/4, L4/5, L5/S1 TLIF with postop coagulopathy of unclear etiology. Coagulation corrected after FFP yest, but platelet continue to decline, now 85, 000 and HCT this am 20. Hematology c/s requested and Dr. Roe has already seen pt. Plan to w/u for DIC though she has no clear risk factors that he can identify. Agrees with management to this point. Plan: -transfuse 2U PRBC this am, repeat CBC after complete -transfuse platelets as soon as available from [facility] -monitor I's/O's carefully and repeat BUN/Cr later today -OOB to chair with brace -use IS 10x/hr while awake -valium, ultram, percocet prn for pain control, NO toradol -SCD/[place] hose for DVT prophylaxis, in light of bleeding, no SQ heparin -await any further heme recs -ADAT -jerez out when OOB -cont to monitor closely in ICU for now Core Measures Venous Thromboembolism VTE Risk Factors Surgery No Mechanical VTE Prophylaxis d/t N/A MechProphylax Ordered No VTE Pharm Prophylaxis d/t Bleeding (Active) Attending MD Review Statement Attending Statement Attending MD Statement: examined this patient, discuss w/resident/PA/FIELD SERVICES ANALYST, discussed w/nursing
[2018-02-01 14:45] LABS: ABSOLUTE BASOPHIL COUNT 0.1 /CUMM (0.0-0.2); ABSOLUTE EOSINOPHIL COUNT 0.1 /CUMM (0.0-0.7); ABSOLUTE LYMPH COUNT 1.8 /CUMM (1.2-3.4); ABSOLUTE MONOCYTE COUNT 0.8 /CUMM (0.10-0.60); BASOPHIL % 0.6 % (0.0-2.0)
[2018-02-01 14:49] LABS: ABSOLUTE GRANULOCYTE CT 5.9 /CUMM (1.4-6.5); EOSINOPHIL % 0.7 % (0-5); GRANULOCYTE % 68.3 % (42.2-75.2); MEAN CORPUSCULAR HGB 29.2 PG (27.0-31.0); MEAN CORPUSCULAR VOLUME 85.8 FL (81.0-99.0); MEAN PLATELET VOLUME 7.6 FL (7.4-10.4); RBC DISTRIBUTION WIDTH 12.9 % (11.5-14.5); WHITE BLOOD CELL COUNT 8.6 /CUMM (4.8-10.8)
[2018-02-01 14:50] LABS: HEMATOCRIT 26.2 % (37-47); PLATELET COUNT 128 /CUMM (130-400); RED BLOOD CELL CT 3.05 /CUMM (4.20-5.40)
[2018-02-01 14:52] LABS: PT 12.2 SEC (9.4-12.5)
[2018-02-02] VITALS (7 sets, daily range): BP systolic 120–162; BP diastolic 60–82
[2018-02-02 03:31] LABS: ABSOLUTE BASOPHIL COUNT 0 /CUMM (0.0-0.2); ABSOLUTE EOSINOPHIL COUNT 0.2 /CUMM (0.0-0.7); ABSOLUTE GRANULOCYTE CT 3.7 /CUMM (1.4-6.5); ABSOLUTE LYMPH COUNT 1.7 /CUMM (1.2-3.4); ABSOLUTE MONOCYTE COUNT 0.6 /CUMM (0.10-0.60); BASOPHIL % 0.7 % (0.0-2.0); EOSINOPHIL % 3.5 % (0-5); GRANULOCYTE % 59.6 % (42.2-75.2); MEAN CORPUSCULAR HGB 29.6 PG (27.0-31.0); MEAN PLATELET VOLUME 7.9 FL (7.4-10.4); PLATELET COUNT 108 /CUMM (130-400); RED BLOOD CELL CT 2.75 /CUMM (4.20-5.40); WHITE BLOOD CELL COUNT 6.3 /CUMM (4.8-10.8)
[2018-02-02 03:40] LABS: PT 11.3 SEC (9.4-12.5); PTT 28 SEC (25-37)
--- NOTE | 2018-02-02 06:51 | PN- Neurosurgical ---
Subjective Subjective: No issues overnight, some pain but helped w meds. +oob in chair now. voiding. no cp/spb/n/v, no dizziness, no parethesias. Objective Vital Signs and I&Os Vital Signs Date Time Temp Pulse Resp B/P B/P Pulse O2 O2 Flow FiO2 Mean Ox Delivery Rate 02/02 0400 97 Room Air Room Air 02/02 0400 97.4 98 23 120/70 97 Room Air Room Air 02/02 0011 90 93 02/02 0000 96 CPAP Room Air 02/02 0000 97.5 88 12 120/60 96 CPAP Room Air 02/01 2218 77 95 02/01 2000 97 Room Air Room Air 02/01 2000 97.6 95 14 120/48 97 Room Air Room Air 02/01 1600 98.3 95 14 120/78 98 Room Air 02/01 1200 98.5 105 18 138/64 98 Room Air 02/01 0800 98.5 108 18 124/60 97 Room Air Intake & Output 02/02 0800 02/02 0000 02/01 1600 02/01 0800 02/01 0000 01/31 1600 Intake Total 919 1871 1342 2790 Output Total 740 995 745 310 Balance 179 568 169 3640 Intake, Blood 1211 Product Intake, IV 040 503 3792 1890 Intake, Oral 430 480 275 900 Number 0 0 0 0 Bowel Movements Output, 90 145 125 110 Drainage Output, Urine 650 850 620 200 Patient 199 lb 192 lb Weight Weight Bed scale Bed scale Measurement Method Physical Exam: gen-nad card- s1s2 rrr pulm- ctab back- dressings intact- minimal dried serosang (or betadine) staining, hv with serosang drainage ext-calves soft nt bl, feet warm, gross sensatiion intact, +dorsi/plantarflexion bl last 8hr shifts: UO: 1500/650/850 HV:110/90/145 Current Medications: Current Medications Sig/[place]air Start time Last Medication Dose Route Stop Time Status Admin Acetaminophen 1,000 MG Q6H 01/31 2300 DC 02/01 N/A 1 UNIT IV 02/01 1714 1610 Albuterol Sulfate 2 PUF Q4P PRN 01/31 2030 AC INH Atorvastatin Calcium 10 MG 1700 02/01 1700 AC 02/01 PO 1610 Bisacodyl 10 MG DAILY NEEDED PRN 01/31 1830 AC NV Budesonide/ 2 PUF BID 01/31 2100 AC 02/01 Formoterol Fumarate INH 2132 Cefazolin Sodium 2 GM Q8H 01/31 2100 DC 02/02 N/A 1 UNIT IV 02/02 0529 0510 Diazepam 5 MG Q8P PRN 01/31 1830 AC 02/02 PO 0258 Docusate Sodium 100 MG TID 01/31 2100 AC 02/01 PO 2128 Hydromorphone HCl 1 MG Q4-6 PRN PRN 02/01 0315 AC 02/02 IV PUSH 0410 Losartan Potassium 100 MG DAILY 02/02 0900 AC PO Montelukast Sodium 10 MG AT BEDTIME 01/31 2100 AC 02/01 PO 2128 Ondansetron HCl 4 MG Q6P PRN 01/31 181 AC IV Oxycodone HCl 10 MG Q4 HRS NEEDED PRN 02/01 1715 AC 02/02 PO 0258 Oxycodone HCl 5 MG Q4 HRS NEEDED PRN 02/01 0830 AC PO Oxycodone HCl 10 MG Q4 HRS NEEDED PRN 02/01 0830 DC 02/01 PO 1249 Potassium Chloride 40 MEQ ONCE ONE 02/01 1530 DC 02/01 PO 02/01 1531 1531 Senna 374 MG QPM PRN 01/31 181 AC PO Sodium Chloride 1,000 ML Q20H 02/01 1530 AC 02/01 IV 1532 Tramadol HCl 50 MG Q4-6 PRN PRN 01/31 2030 AC PO Tramadol HCl 100 MG Q4-6 PRN PRN 01/31 2030 AC 02/02 PO 0221 Trimethobenzamide HCl 200 MG Q6P PRN 01/31 181 AC IM Zolpidem Tartrate 2.5 MG AT BEDTIME NEED.. 01/31 181 AC PO Results Last 48 Hours of Labs: Laboratory Tests 02/02 02/01 0303 1430 Chemistry Sodium (137 - 145 mmol/L) 142 140 Potassium (3.5 - 5.1 mmol/L) 3.6 3.4 L Chloride (98 - 107 mmol/L) 108 H 106 Carbon Dioxide (22 - 30 mmol/L) 29 28 Anion Gap (5 - 16) 5 7 BUN (7 - 17 mg/dL) 19 H 21 H Creatinine (0.5 - 1.0 mg/dL) 1.2 H 1.3 H Estimated GFR (>60 ml/min) 46 L 42 L BUN/Creatinine Ratio (7 - 25 %) 15.8 16.2 Coagulation PT (9.4 - 12.5 SEC) 11.3 12.2 INR (0.90 - 1.19) 1.04 1.12 APTT (25 - 37 SEC) 28 Hematology CBC w Diff NO MAN DIFF REQ NO MAN DIFF REQ WBC (4.8 - 10.8 /CUMM) 6.3 8.6 RBC (4.20 - 5.40 /CUMM) 2.75 L 3.05 L Hgb (12.0 - 16.0 G/DL) 8.1 L 8.9 L Hct (37 - 47 %) 24.0 L 26.2 L MCV (81.0 - 99.0 FL) 87.0 85.8 MCH (27.0 - 31.0 PG) 29.6 29.2 MCHC (33.0 - 37.0 G/DL) 34.0 34.0 RDW (11.5 - 14.5 %) 13.0 12.9 Plt Count (130 - 400 /CUMM) 108 L 128 L MPV (7.4 - 10.4 FL) 7.9 7.6 Gran % (42.2 - 75.2 %) 59.6 68.3 Lymphocytes % (20.5 - 51.1 %) 27.4 21.1 Monocytes % (1.7 - 9.3 %) 8.8 9.3 Eosinophils % (0 - 5 %) 3.5 0.7 Basophils % (0.0 - 2.0 %) 0.7 0.6 Absolute Granulocytes (1.4 - 6.5 /CUMM) 3.7 5.9 Absolute Lymphocytes (1.2 - 3.4 /CUMM) 1.7 1.8 Absolute Monocytes (0.10 - 0.60 /CUMM) 0.6 0.8 H Absolute Eosinophils (0.0 - 0.7 /CUMM) 0.2 0.1 Absolute Basophils (0.0 - 0.2 /CUMM) 0 0.1 02/01 02/01 1008 0912 Coagulation Fibrinogen Activity (200 - 393 MG/DL) 130 L Urines Urinalysis MOD H Urine Color (YEL,AMB,STR) YEL Urine Clarity (CLEAR) CLEAR Urine pH (5.0 - 8.0) 6.0 Ur Specific [place] (1.001 - 1.035) 1.015 Urine Protein (NEG,<30 MG/DL) NEG Urine Ketones (NEG) NEG Urine Nitrite (NEG) NEG Urine Bilirubin (NEG) NEG Urine Urobilinogen (0.1 - 1.0 EU/dl) 0.2 Ur Leukocyte Esterase (NEG) NEG Ur Microscopic SEDIMENT EXAMINED Urine RBC (0 - 5 /HPF) 3-5 Urine WBC (0 - 2 /HPF) 1-3 H Ur Epithelial Cells (NONE,FEW) MOD H Urine Hemoglobin (NEG) MOD H Urine Glucose (N MG/DL) NEG 02/01 02/01 0545 0450 Chemistry Sodium (137 - 145 mmol/L) 140 Potassium (3.5 - 5.1 mmol/L) 3.9 Chloride (98 - 107 mmol/L) 109 H Carbon Dioxide (22 - 30 mmol/L) 26 Anion Gap (5 - 16) 5 BUN (7 - 17 mg/dL) 20 H Creatinine (0.5 - 1.0 mg/dL) 1.2 H Estimated GFR (>60 ml/min) 46 L BUN/Creatinine Ratio (7 - 25 %) 16.7 Creatine Kinase (30 - 135 U/L) 4299 H Coagulation PT (9.4 - 12.5 SEC) 13.2 H INR (0.90 - 1.19) 1.21 H APTT (25 - 37 SEC) 25 Hematology CBC w Diff NO MAN DIFF REQ NO MAN DIFF REQ WBC (4.8 - 10.8 /CUMM) 8.9 8.8 RBC (4.20 - 5.40 /CUMM) 2.30 L 2.35 L Hgb (12.0 - 16.0 G/DL) 6.7 *L 7.0 *L Hct (37 - 47 %) 20.1 L 20.5 L MCV (81.0 - 99.0 FL) 87.4 87.3 MCH (27.0 - 31.0 PG) 29.2 29.5 MCHC (33.0 - 37.0 G/DL) 33.4 33.8 RDW (11.5 - 14.5 %) 12.7 12.7 Plt Count (130 - 400 /CUMM) 85 L 89 L MPV (7.4 - 10.4 FL) 8.4 8.7 Gran % (42.2 - 75.2 %) 75.0 78.0 H Lymphocytes % (20.5 - 51.1 %) 15.6 L 13.5 L Monocytes % (1.7 - 9.3 %) 8.7 7.9 Eosinophils % (0 - 5 %) 0.1 0.1 Basophils % (0.0 - 2.0 %) 0.6 0.5 Absolute Granulocytes (1.4 - 6.5 /CUMM) 6.6 H 6.9 H Absolute Lymphocytes (1.2 - 3.4 /CUMM) 1.4 1.2 Absolute Monocytes (0.10 - 0.60 /CUMM) 0.8 H 0.7 H Absolute Eosinophils (0.0 - 0.7 /CUMM) 0 0 Absolute Basophils (0.0 - 0.2 /CUMM) 0.1 0 02/01 01/31 0005 1603 Chemistry Sodium (137 - 145 mmol/L) 141 140 Potassium (3.5 - 5.1 mmol/L) 4.1 4.4 Chloride (98 - 107 mmol/L) 109 H 109 H Carbon Dioxide (22 - 30 mmol/L) 25 25 Anion Gap (5 - 16) 7 6 BUN (7 - 17 mg/dL) 17 12 Creatinine (0.5 - 1.0 mg/dL) 1.2 H 0.9 Estimated GFR (>60 ml/min) 46 L > 60 BUN/Creatinine Ratio (7 - 25 %) 14.2 13.3 Creatine Kinase (30 - 135 U/L) 1472 H Coagulation PT (9.4 - 12.5 SEC) 13.4 H INR (0.90 - 1.19) 1.23 H APTT (25 - 37 SEC) 26 Hematology CBC w Diff NO MAN DIFF REQ WBC (4.8 - 10.8 /CUMM) 12.1 H RBC (4.20 - 5.40 /CUMM) 2.72 L Hgb (12.0 - 16.0 G/DL) 8.1 L Hct (37 - 47 %) 23.5 L MCV (81.0 - 99.0 FL) 86.7 MCH (27.0 - 31.0 PG) 29.8 MCHC (33.0 - 37.0 G/DL) 34.3 RDW (11.5 - 14.5 %) 12.7 Plt Count (130 - 400 /CUMM) 102 L MPV (7.4 - 10.4 FL) 8.9 Gran % (42.2 - 75.2 %) 85.7 H Lymphocytes % (20.5 - 51.1 %) 6.8 L Monocytes % (1.7 - 9.3 %) 7.3 Eosinophils % (0 - 5 %) 0 Basophils % (0.0 - 2.0 %) 0.2 Absolute Granulocytes (1.4 - 6.5 /CUMM) 10.4 H Absolute Lymphocytes (1.2 - 3.4 /CUMM) 0.8 L Absolute Monocytes (0.10 - 0.60 /CUMM) 0.9 H Absolute Eosinophils (0.0 - 0.7 /CUMM) 0 Absolute Basophils (0.0 - 0.2 /CUMM) 0 01/31 01/31 1555 1535 Coagulation PT (9.4 - 12.5 SEC) 14.4 H INR (0.90 - 1.19) 1.32 H APTT (25 - 37 SEC) 42 H Urines Urinalysis MOD H Urine Color (YEL,AMB,STR) BROWN H Urine Clarity (CLEAR) CLDY H Urine pH (5.0 - 8.0) 6.5 Ur Specific [place] (1.001 - 1.035) 1.015 Urine Protein (NEG,<30 MG/DL) 100 H Urine Ketones (NEG) TRACE H Urine Nitrite (NEG) POS H Urine Bilirubin (NEG) NEG@ICTO Urine Urobilinogen (0.1 - 1.0 EU/dl) 0.2 Ur Leukocyte Esterase (NEG) NEG Ur Microscopic SEDIMENT EXAMINED Urine RBC (0 - 5 /HPF) RARE Urine WBC (0 - 2 /HPF) RARE Ur Epithelial Cells (NONE,FEW) RARE Urine Bacteria (NEG/NONE) FEW H Urine Hemoglobin (NEG) LARGE H Urine Glucose (N MG/DL) NEG 01/31 01/31 1511 1232 Hematology CBC w Diff MAN DIFF ORDERED MAN DIFF ORDERED WBC (4.8 - 10.8 /CUMM) 15.3 H 8.4 RBC (4.20 - 5.40 /CUMM) 3.82 L 4.18 L Hgb (12.0 - 16.0 G/DL) 11.3 L 12.4 Hct (37 - 47 %) 33.1 L 36.0 L MCV (81.0 - 99.0 FL) 86.5 86.1 MCH (27.0 - 31.0 PG) 29.4 29.7 MCHC (33.0 - 37.0 G/DL) 34.0 34.5 RDW (11.5 - 14.5 %) 12.5 12.1 Plt Count (130 - 400 /CUMM) 116 L 125 L MPV (7.4 - 10.4 FL) 8.3 8.9 Gran % (42.2 - 75.2 %) 91.9 H 90.2 H Lymphocytes % (20.5 - 51.1 %) 5.5 L 6.8 L Monocytes % (1.7 - 9.3 %) 2.1 2.4 Eosinophils % (0 - 5 %) 0.1 0.4 Basophils % (0.0 - 2.0 %) 0.4 0.2 Absolute Granulocytes (1.4 - 6.5 /CUMM) 14.0 H 7.6 H Segmented Neutrophils (42.2 - 75.2 %) 86 H Band Neutrophils (0.0 - 5.0 %) 5 Absolute Lymphocytes (1.2 - 3.4 /CUMM) 0.8 L 0.6 L Lymphocytes (20.5 - 51.1 %) 6 L Monocytes (1.7 - 9.3 %) 3 Absolute Monocytes (0.10 - 0.60 /CUMM) 0.3 0.2 Absolute Eosinophils (0.0 - 0.7 /CUMM) 0 0 Absolute Basophils (0.0 - 0.2 /CUMM) 0.1 0 Platelet Estimate (ADEQUATE) VERIFIED BY SMEAR DECREASED Normocytic RBCs VERIFIED VERIFIED Normochromic RBCs VERIFIED VERIFIED Assessment/Plan Assessment/Plan A- POD2 sp L3-s1 TLIF with acute blood loss anemia related to pintraop blood loss, improved after transfusion of 2u prbc and 1 pack plts yesterday, though remains anemic, also w DARIELA improving with gentle ivf. P- ?transfuse to keep hct >25 prn pain meds cont low rate ns for dariela oob, ambulate i&os cont hold hep sq alps ?out of icu will dw Dr. Fernandez Core Measures Venous Thromboembolism VTE Risk Factors Surgery No Mechanical VTE Prophylaxis d/t N/A MechProphylax Ordered No VTE Pharm Prophylaxis d/t Bleeding (Active)
--- NOTE | 2018-02-02 07:24 | PN- Hematology ---
Subjective Subjective: Complaining only of incisional back pain, patient is ambulating 12 point review of systems otherwise negative Objective Vital Signs and I&Os Vital Signs Date Time Temp Pulse Resp B/P B/P Pulse O2 O2 Flow FiO2 Mean Ox Delivery Rate 02/02 0400 97 Room Air Room Air 02/02 0400 97.4 98 23 120/70 97 Room Air Room Air 02/02 0011 90 93 02/02 0000 96 CPAP Room Air 02/02 0000 97.5 88 12 120/60 96 CPAP Room Air 02/01 2218 77 95 02/01 2000 97 Room Air Room Air 02/01 2000 97.6 95 14 120/48 97 Room Air Room Air 02/01 1600 98.3 95 14 120/78 98 Room Air 02/01 1200 98.5 105 18 138/64 98 Room Air 02/01 0800 98.5 108 18 124/60 97 Room Air Intake & Output 02/02 0800 02/02 0000 02/01 1600 02/01 0800 02/01 0000 01/31 1600 Intake Total 285 685 7463 1342 2790 Output Total 1610 740 995 745 310 Balance -1148 179 652 617 5228 Intake, Blood 1211 Product Intake, IV 342 945 151 0478 1890 Intake, Oral 120 430 480 275 900 Number 0 0 0 0 0 Bowel Movements Output, 110 90 145 125 110 Drainage Output, Urine 1500 650 850 620 200 Patient 205 lb 199 lb 192 lb Weight Weight Bed scale Bed scale Bed scale Measurement Method Tube drainage-minimal Gen.: in NAD ENT: Sclera anicteric Chest: Normal respiratory effort, clear breath sounds Cor: RRR, no extra sounds Abdomen: Soft, bowel sounds present, no tenderness, no rebound Extremities: Without clubbing, cyanosis, or asymmetric edema Neurology: Alert and oriented 3, no gross deficit Current Medications: Current Medications Sig/[place] Start time Last Medication Dose Route Stop Time Status Admin Acetaminophen 1,000 MG Q6H 01/31 2300 DC 02/01 N/A 1 UNIT IV 02/01 1714 1610 Albuterol Sulfate 2 PUF Q4P PRN 01/31 2030 AC INH Atorvastatin Calcium 10 MG 1700 02/01 1700 AC 02/01 PO 1610 Bisacodyl 10 MG DAILY NEEDED PRN 01/31 1830 AC HI Budesonide/ 2 PUF BID 01/31 2100 AC 02/01 Formoterol Fumarate INH 2132 Cefazolin Sodium 2 GM Q8H 01/31 2100 DC 02/02 N/A 1 UNIT IV 02/02 0529 0510 Diazepam 5 MG Q8P PRN 01/31 1830 AC 02/02 PO 0258 Docusate Sodium 100 MG TID 01/31 2100 AC 02/01 PO 2128 Hydromorphone HCl 1 MG Q4-6 PRN PRN 02/01 0315 AC 02/02 IV PUSH 0410 Losartan Potassium 100 MG DAILY 02/02 0900 AC PO Montelukast Sodium 10 MG AT BEDTIME 01/31 2100 AC 02/01 PO 2128 Ondansetron HCl 4 MG Q6P PRN 01/31 181 AC IV Oxycodone HCl 10 MG Q4 HRS NEEDED PRN 02/01 1715 AC 02/02 PO 0707 Oxycodone HCl 5 MG Q4 HRS NEEDED PRN 02/01 0830 AC PO Oxycodone HCl 10 MG Q4 HRS NEEDED PRN 02/01 0830 DC 02/01 PO 1249 Potassium Chloride 40 MEQ ONCE ONE 02/01 1530 DC 02/01 PO 02/01 1531 1531 Senna 374 MG QPM PRN 01/31 181 AC PO Sodium Chloride 1,000 ML Q20H 02/01 1530 AC 02/01 IV 1532 Tramadol HCl 50 MG Q4-6 PRN PRN 01/31 2030 AC PO Tramadol HCl 100 MG Q4-6 PRN PRN 01/31 2030 AC 02/02 PO 0221 Trimethobenzamide HCl 200 MG Q6P PRN 01/31 1815 AC IM Zolpidem Tartrate 2.5 MG AT BEDTIME NEED.. 01/31 181 AC PO Results Last 24 Hours of Lab Results: Laboratory Tests 02/02 02/01 0303 1430 Chemistry Sodium (137 - 145 mmol/L) 142 140 Potassium (3.5 - 5.1 mmol/L) 3.6 3.4 L Chloride (98 - 107 mmol/L) 108 H 106 Carbon Dioxide (22 - 30 mmol/L) 29 28 Anion Gap (5 - 16) 5 7 BUN (7 - 17 mg/dL) 19 H 21 H Creatinine (0.5 - 1.0 mg/dL) 1.2 H 1.3 H Estimated GFR (>60 ml/min) 46 L 42 L BUN/Creatinine Ratio (7 - 25 %) 15.8 16.2 Coagulation PT (9.4 - 12.5 SEC) 11.3 12.2 INR (0.90 - 1.19) 1.04 1.12 APTT (25 - 37 SEC) 28 Hematology CBC w Diff NO MAN DIFF REQ NO MAN DIFF REQ WBC (4.8 - 10.8 /CUMM) 6.3 8.6 RBC (4.20 - 5.40 /CUMM) 2.75 L 3.05 L Hgb (12.0 - 16.0 G/DL) 8.1 L 8.9 L Hct (37 - 47 %) 24.0 L 26.2 L MCV (81.0 - 99.0 FL) 87.0 85.8 MCH (27.0 - 31.0 PG) 29.6 29.2 MCHC (33.0 - 37.0 G/DL) 34.0 34.0 RDW (11.5 - 14.5 %) 13.0 12.9 Plt Count (130 - 400 /CUMM) 108 L 128 L MPV (7.4 - 10.4 FL) 7.9 7.6 Gran % (42.2 - 75.2 %) 59.6 68.3 Lymphocytes % (20.5 - 51.1 %) 27.4 21.1 Monocytes % (1.7 - 9.3 %) 8.8 9.3 Eosinophils % (0 - 5 %) 3.5 0.7 Basophils % (0.0 - 2.0 %) 0.7 0.6 Absolute Granulocytes (1.4 - 6.5 /CUMM) 3.7 5.9 Absolute Lymphocytes (1.2 - 3.4 /CUMM) 1.7 1.8 Absolute Monocytes (0.10 - 0.60 /CUMM) 0.6 0.8 H Absolute Eosinophils (0.0 - 0.7 /CUMM) 0.2 0.1 Absolute Basophils (0.0 - 0.2 /CUMM) 0 0.1 02/01 02/01 1008 0912 Coagulation Fibrinogen Activity (200 - 393 MG/DL) 130 L Urines Urinalysis MOD H Urine Color (YEL,AMB,STR) YEL Urine Clarity (CLEAR) CLEAR Urine pH (5.0 - 8.0) 6.0 Ur Specific [place] (1.001 - 1.035) 1.015 Urine Protein (NEG,<30 MG/DL) NEG Urine Ketones (NEG) NEG Urine Nitrite (NEG) NEG Urine Bilirubin (NEG) NEG Urine Urobilinogen (0.1 - 1.0 EU/dl) 0.2 Ur Leukocyte Esterase (NEG) NEG Ur Microscopic SEDIMENT EXAMINED Urine RBC (0 - 5 /HPF) 3-5 Urine WBC (0 - 2 /HPF) 1-3 H Ur Epithelial Cells (NONE,FEW) MOD H Urine Hemoglobin (NEG) MOD H Urine Glucose (N MG/DL) NEG Fibrinogen-130 Assessment/Plan Hematology Assessment/Recommendations: Preoperative bleeding-laboratory data is relatively stable. Fibrinogen is slightly low but this may be dilutional. Patient did respond to a platelet transfusion Recommend- Follow CBC Repeat PT PTT and fibrinogen Patient will need an outpatient workup for a bleeding tendency I have discussed this with the patient
--- NOTE | 2018-02-02 07:34 | PN- Neurosurgical ---
Subjective Subjective: Pt doing well this am. reports incisional LBP but much improved pain and parasthesias in LE essentially resolved c/w preop. Denies being light headed, SB, dizzy both in and OOB. Objective Vital Signs and I&Os Vital Signs Date Time Temp Pulse Resp B/P B/P Pulse O2 O2 Flow FiO2 Mean Ox Delivery Rate 02/02 0400 97 Room Air Room Air 02/02 0400 97.4 98 23 120/70 97 Room Air Room Air 02/02 0011 90 93 02/02 0000 96 CPAP Room Air 02/02 0000 97.5 88 12 120/60 96 CPAP Room Air 02/01 2218 77 95 02/01 2000 97 Room Air Room Air 02/01 2000 97.6 95 14 120/48 97 Room Air Room Air 02/01 1600 98.3 95 14 120/78 98 Room Air 02/01 1200 98.5 105 18 138/64 98 Room Air 02/01 0800 98.5 108 18 124/60 97 Room Air Intake & Output 02/02 0800 02/02 0000 02/01 1600 02/01 0800 02/01 0000 01/31 1600 Intake Total 332 192 6008 1342 2790 Output Total 1610 740 995 745 310 Balance -1148 179 857 369 8570 Intake, Blood 1211 Product Intake, IV 342 863 839 8808 1890 Intake, Oral 120 430 480 275 900 Number 0 0 0 0 0 Bowel Movements Output, 110 90 145 125 110 Drainage Output, Urine 1500 650 850 620 200 Patient 93.1 kg 90.208 kg 87.09 kg Weight Weight Bed scale Bed scale Bed scale Measurement Method Physical Exam: AF, tachy, BP stable sats good on RA, using IS regularly to 3.5L without difficulty normal motor and sensory bilat LE, no edema patch of hypesthesia volar right mid forearm - may be related to monitoring lead - no swelling, normal sensation distal and proximal, no neck or arm pain, normal motor Lumbar and R hip incision c,d,i flat without active drainage HV with 110cc last shift, 360cc for prior 24hrs serosanguinous was oob yest to chair gavino po well mobilizing fluids well with good UO, no BM yet Current Medications: Current Medications Sig/[place] Start time Last Medication Dose Route Stop Time Status Admin Acetaminophen 1,000 MG Q6H 01/31 2300 DC 02/01 N/A 1 UNIT IV 02/01 1714 1610 Albuterol Sulfate 2 PUF Q4P PRN 01/31 2030 AC INH Atorvastatin Calcium 10 MG 1700 02/01 1700 AC 02/01 PO 1610 Bisacodyl 10 MG DAILY NEEDED PRN 01/31 1830 AC [place] Budesonide/ 2 PUF BID 01/31 2100 AC 02/01 Formoterol Fumarate INH 2132 Cefazolin Sodium 2 GM Q8H 01/31 2100 DC 02/02 N/A 1 UNIT IV 02/02 0529 0510 Diazepam 5 MG Q8P PRN 01/31 1830 AC 02/02 PO 0258 Docusate Sodium 100 MG TID 01/31 2100 AC 02/01 PO 2128 Hydromorphone HCl 1 MG Q4-6 PRN PRN 02/01 0315 AC 02/02 IV PUSH 0410 Losartan Potassium 100 MG DAILY 02/02 0900 AC PO Montelukast Sodium 10 MG AT BEDTIME 01/31 2100 AC 02/01 PO 2128 Ondansetron HCl 4 MG Q6P PRN 01/31 181 AC IV Oxycodone HCl 10 MG Q4 HRS NEEDED PRN 02/01 1715 AC 02/02 PO 0707 Oxycodone HCl 5 MG Q4 HRS NEEDED PRN 02/01 0830 AC PO Oxycodone HCl 10 MG Q4 HRS NEEDED PRN 02/01 0830 DC 02/01 PO 1249 Potassium Chloride 40 MEQ ONCE ONE 02/01 1530 DC 02/01 PO 02/01 1531 1531 Senna 374 MG QPM PRN 01/31 181 AC PO Sodium Chloride 1,000 ML Q20H 02/01 1530 AC 02/01 IV 1532 Tramadol HCl 50 MG Q4-6 PRN PRN 01/31 2030 AC PO Tramadol HCl 100 MG Q4-6 PRN PRN 01/31 2030 AC 02/02 PO 0221 Trimethobenzamide HCl 200 MG Q6P PRN 01/31 1815 AC IM Zolpidem Tartrate 2.5 MG AT BEDTIME NEED.. 01/31 1815 AC PO Results Last 48 Hours of Labs: Laboratory Tests 02/02 02/01 0303 1430 Chemistry Sodium (137 - 145 mmol/L) 142 140 Potassium (3.5 - 5.1 mmol/L) 3.6 3.4 L Chloride (98 - 107 mmol/L) 108 H 106 Carbon Dioxide (22 - 30 mmol/L) 29 28 Anion Gap (5 - 16) 5 7 BUN (7 - 17 mg/dL) 19 H 21 H Creatinine (0.5 - 1.0 mg/dL) 1.2 H 1.3 H Estimated GFR (>60 ml/min) 46 L 42 L BUN/Creatinine Ratio (7 - 25 %) 15.8 16.2 Coagulation PT (9.4 - 12.5 SEC) 11.3 12.2 INR (0.90 - 1.19) 1.04 1.12 APTT (25 - 37 SEC) 28 Hematology CBC w Diff NO MAN DIFF REQ NO MAN DIFF REQ WBC (4.8 - 10.8 /CUMM) 6.3 8.6 RBC (4.20 - 5.40 /CUMM) 2.75 L 3.05 L Hgb (12.0 - 16.0 G/DL) 8.1 L 8.9 L Hct (37 - 47 %) 24.0 L 26.2 L MCV (81.0 - 99.0 FL) 87.0 85.8 MCH (27.0 - 31.0 PG) 29.6 29.2 MCHC (33.0 - 37.0 G/DL) 34.0 34.0 RDW (11.5 - 14.5 %) 13.0 12.9 Plt Count (130 - 400 /CUMM) 108 L 128 L MPV (7.4 - 10.4 FL) 7.9 7.6 Gran % (42.2 - 75.2 %) 59.6 68.3 Lymphocytes % (20.5 - 51.1 %) 27.4 21.1 Monocytes % (1.7 - 9.3 %) 8.8 9.3 Eosinophils % (0 - 5 %) 3.5 0.7 Basophils % (0.0 - 2.0 %) 0.7 0.6 Absolute Granulocytes (1.4 - 6.5 /CUMM) 3.7 5.9 Absolute Lymphocytes (1.2 - 3.4 /CUMM) 1.7 1.8 Absolute Monocytes (0.10 - 0.60 /CUMM) 0.6 0.8 H Absolute Eosinophils (0.0 - 0.7 /CUMM) 0.2 0.1 Absolute Basophils (0.0 - 0.2 /CUMM) 0 0.1 02/01 02/01 1008 0912 Coagulation Fibrinogen Activity (200 - 393 MG/DL) 130 L Urines Urinalysis MOD H Urine Color (YEL,AMB,STR) YEL Urine Clarity (CLEAR) CLEAR Urine pH (5.0 - 8.0) 6.0 Ur Specific [place] (1.001 - 1.035) 1.015 Urine Protein (NEG,<30 MG/DL) NEG Urine Ketones (NEG) NEG Urine Nitrite (NEG) NEG Urine Bilirubin (NEG) NEG Urine Urobilinogen (0.1 - 1.0 EU/dl) 0.2 Ur Leukocyte Esterase (NEG) NEG Ur Microscopic SEDIMENT EXAMINED Urine RBC (0 - 5 /HPF) 3-5 Urine WBC (0 - 2 /HPF) 1-3 H Ur Epithelial Cells (NONE,FEW) MOD H Urine Hemoglobin (NEG) MOD H Urine Glucose (N MG/DL) NEG 02/01 02/01 0545 0450 Chemistry Sodium (137 - 145 mmol/L) 140 Potassium (3.5 - 5.1 mmol/L) 3.9 Chloride (98 - 107 mmol/L) 109 H Carbon Dioxide (22 - 30 mmol/L) 26 Anion Gap (5 - 16) 5 BUN (7 - 17 mg/dL) 20 H Creatinine (0.5 - 1.0 mg/dL) 1.2 H Estimated GFR (>60 ml/min) 46 L BUN/Creatinine Ratio (7 - 25 %) 16.7 Creatine Kinase (30 - 135 U/L) 4299 H Coagulation PT (9.4 - 12.5 SEC) 13.2 H INR (0.90 - 1.19) 1.21 H APTT (25 - 37 SEC) 25 Hematology CBC w Diff NO MAN DIFF REQ NO MAN DIFF REQ WBC (4.8 - 10.8 /CUMM) 8.9 8.8 RBC (4.20 - 5.40 /CUMM) 2.30 L 2.35 L Hgb (12.0 - 16.0 G/DL) 6.7 *L 7.0 *L Hct (37 - 47 %) 20.1 L 20.5 L MCV (81.0 - 99.0 FL) 87.4 87.3 MCH (27.0 - 31.0 PG) 29.2 29.5 MCHC (33.0 - 37.0 G/DL) 33.4 33.8 RDW (11.5 - 14.5 %) 12.7 12.7 Plt Count (130 - 400 /CUMM) 85 L 89 L MPV (7.4 - 10.4 FL) 8.4 8.7 Gran % (42.2 - 75.2 %) 75.0 78.0 H Lymphocytes % (20.5 - 51.1 %) 15.6 L 13.5 L Monocytes % (1.7 - 9.3 %) 8.7 7.9 Eosinophils % (0 - 5 %) 0.1 0.1 Basophils % (0.0 - 2.0 %) 0.6 0.5 Absolute Granulocytes (1.4 - 6.5 /CUMM) 6.6 H 6.9 H Absolute Lymphocytes (1.2 - 3.4 /CUMM) 1.4 1.2 Absolute Monocytes (0.10 - 0.60 /CUMM) 0.8 H 0.7 H Absolute Eosinophils (0.0 - 0.7 /CUMM) 0 0 Absolute Basophils (0.0 - 0.2 /CUMM) 0.1 0 /20 /19 0005 1603 Chemistry Sodium (137 - 145 mmol/L) 141 140 Potassium (3.5 - 5.1 mmol/L) 4.1 4.4 Chloride (98 - 107 mmol/L) 109 H 109 H Carbon Dioxide (22 - 30 mmol/L) 25 25 Anion Gap (5 - 16) 7 6 BUN (7 - 17 mg/dL) 17 12 Creatinine (0.5 - 1.0 mg/dL) 1.2 H 0.9 Estimated GFR (>60 ml/min) 46 L > 60 BUN/Creatinine Ratio (7 - 25 %) 14.2 13.3 Creatine Kinase (30 - 135 U/L) 1472 H Coagulation PT (9.4 - 12.5 SEC) 13.4 H INR (0.90 - 1.19) 1.23 H APTT (25 - 37 SEC) 26 Hematology CBC w Diff NO MAN DIFF REQ WBC (4.8 - 10.8 /CUMM) 12.1 H RBC (4.20 - 5.40 /CUMM) 2.72 L Hgb (12.0 - 16.0 G/DL) 8.1 L Hct (37 - 47 %) 23.5 L MCV (81.0 - 99.0 FL) 86.7 MCH (27.0 - 31.0 PG) 29.8 MCHC (33.0 - 37.0 G/DL) 34.3 RDW (11.5 - 14.5 %) 12.7 Plt Count (130 - 400 /CUMM) 102 L MPV (7.4 - 10.4 FL) 8.9 Gran % (42.2 - 75.2 %) 85.7 H Lymphocytes % (20.5 - 51.1 %) 6.8 L Monocytes % (1.7 - 9.3 %) 7.3 Eosinophils % (0 - 5 %) 0 Basophils % (0.0 - 2.0 %) 0.2 Absolute Granulocytes (1.4 - 6.5 /CUMM) 10.4 H Absolute Lymphocytes (1.2 - 3.4 /CUMM) 0.8 L Absolute Monocytes (0.10 - 0.60 /CUMM) 0.9 H Absolute Eosinophils (0.0 - 0.7 /CUMM) 0 Absolute Basophils (0.0 - 0.2 /CUMM) 0 01/31 01/31 1555 1535 Coagulation PT (9.4 - 12.5 SEC) 14.4 H INR (0.90 - 1.19) 1.32 H APTT (25 - 37 SEC) 42 H Urines Urinalysis MOD H Urine Color (YEL,AMB,STR) BROWN H Urine Clarity (CLEAR) CLDY H Urine pH (5.0 - 8.0) 6.5 Ur Specific [place] (1.001 - 1.035) 1.015 Urine Protein (NEG,<30 MG/DL) 100 H Urine Ketones (NEG) TRACE H Urine Nitrite (NEG) POS H Urine Bilirubin (NEG) NEG@ICTO Urine Urobilinogen (0.1 - 1.0 EU/dl) 0.2 Ur Leukocyte Esterase (NEG) NEG Ur Microscopic SEDIMENT EXAMINED Urine RBC (0 - 5 /HPF) RARE Urine WBC (0 - 2 /HPF) RARE Ur Epithelial Cells (NONE,FEW) RARE Urine Bacteria (NEG/NONE) FEW H Urine Hemoglobin (NEG) LARGE H Urine Glucose (N MG/DL) NEG 06/19 06/19 1511 1232 Hematology CBC w Diff MAN DIFF ORDERED MAN DIFF ORDERED WBC (4.8 - 10.8 /CUMM) 15.3 H 8.4 RBC (4.20 - 5.40 /CUMM) 3.82 L 4.18 L Hgb (12.0 - 16.0 G/DL) 11.3 L 12.4 Hct (37 - 47 %) 33.1 L 36.0 L MCV (81.0 - 99.0 FL) 86.5 86.1 MCH (27.0 - 31.0 PG) 29.4 29.7 MCHC (33.0 - 37.0 G/DL) 34.0 34.5 RDW (11.5 - 14.5 %) 12.5 12.1 Plt Count (130 - 400 /CUMM) 116 L 125 L MPV (7.4 - 10.4 FL) 8.3 8.9 Gran % (42.2 - 75.2 %) 91.9 H 90.2 H Lymphocytes % (20.5 - 51.1 %) 5.5 L 6.8 L Monocytes % (1.7 - 9.3 %) 2.1 2.4 Eosinophils % (0 - 5 %) 0.1 0.4 Basophils % (0.0 - 2.0 %) 0.4 0.2 Absolute Granulocytes (1.4 - 6.5 /CUMM) 14.0 H 7.6 H Segmented Neutrophils (42.2 - 75.2 %) 86 H Band Neutrophils (0.0 - 5.0 %) 5 Absolute Lymphocytes (1.2 - 3.4 /CUMM) 0.8 L 0.6 L Lymphocytes (20.5 - 51.1 %) 6 L Monocytes (1.7 - 9.3 %) 3 Absolute Monocytes (0.10 - 0.60 /CUMM) 0.3 0.2 Absolute Eosinophils (0.0 - 0.7 /CUMM) 0 0 Absolute Basophils (0.0 - 0.2 /CUMM) 0.1 0 Platelet Estimate (ADEQUATE) VERIFIED BY SMEAR DECREASED Normocytic RBCs VERIFIED VERIFIED Normochromic RBCs VERIFIED VERIFIED Assessment/Plan Assessment/Plan Pt POD2 s/p L3/4, L4//5, L5/S1 TLIF with intraop and postop bleeding, now resolved to typical baseline after ffp and plt transfusion as well as 2U PRBC for postop anemia. Labs stable with no evidence of ongoing bleeding. Fibrinogen level low but heme feels could be dilutional and should be repeated today. Pt remains tachycardic but without other sxs of anemia and will monitor closely when oob today. If develops light headedness, dizzyness, SOB, CP or there is persistent high volume output from drain of HCT declines further, will need additional PRBC. If remains asymptomatic, will defer more blood from bloodbank for now. Plan: -to regular floor this am -OOB with brace -PT -cont HV until less than 50cc/shift, abx until drain out -repeat fibrinogen level this am per heme -dc planning for home with VNA when ready -repeat cbcp, lytes in am tomorrow Core Measures Venous Thromboembolism VTE Risk Factors Surgery No Mechanical VTE Prophylaxis d/t N/A MechProphylax Ordered No VTE Pharm Prophylaxis d/t Bleeding (Active)
[2018-02-03 02:00] VITALS: BP 142/80
[2018-02-03 06:00] VITALS: BP 120/70
--- NOTE | 2018-02-03 07:17 | PN- Oncology ---
Subjective Subjective: Persistent back pain but otherwise no new complaints, 12 point review of systems unchanged Objective Vital Signs and I&Os Vital Signs Date Time Temp Pulse Resp B/P B/P Pulse O2 O2 Flow FiO2 Mean Ox Delivery Rate 02/03 0600 98.5 82 20 120/70 97 Room Air 02/03 0200 99.0 90 20 142/80 96 Room Air 02/03 0000 99.1 02/02 2217 98 98 02/02 2206 100.2 84 20 140/80 96 02/02 1928 99.4 91 20 146/80 99 02/02 1538 98.4 85 22 122/74 100 Room Air 02/02 1200 99.4 91 20 148/82 97 Room Air 02/02 0815 100 162/72 02/02 0800 99 Room Air 02/02 0800 98.0 100 20 162/72 99 Room Air Intake & Output 02/03 0800 02/03 0000 02/02 1600 02/02 0800 02/02 0000 02/01 1600 Intake Total 120 550 064 721 1140 Output Total 900 1610 740 995 Balance 120 -350 -1148 179 876 Intake, Blood 1211 Product Intake, IV 20 70 342 489 180 Intake, Oral 100 480 120 430 480 Number 0 0 0 0 Bowel Movements Output, 100 110 90 145 Drainage Output, Urine 800 1500 650 850 Patient 205 lb 205 lb Weight Weight Bed scale Measurement Method Gen.: in NAD ENT: Sclera anicteric Chest: Normal respiratory effort, clear breath sounds Cor: RRR, no extra sounds Abdomen: Soft, bowel sounds present, no tenderness, no rebound Extremities: Without clubbing, cyanosis, or asymmetric edema Neurology: Alert and oriented 3, Current Medications: Current Medications Sig/[place] Start time Last Medication Dose Route Stop Time Status Admin Albuterol Sulfate 2 PUF Q4P PRN 01/31 2030 AC INH Atorvastatin Calcium 10 MG 1700 02/01 1700 AC 02/02 PO 1637 Bisacodyl 10 MG DAILY NEEDED PRN 01/31 1830 AC [place] Budesonide/ 2 PUF BID 01/31 2100 AC 02/03 Formoterol Fumarate INH 0035 Cefazolin Sodium 2 GM IQ8 02/02 0800 AC 02/02 N/A 1 UNIT IV 02/03 0759 2329 Diazepam 5 MG Q8P PRN 01/31 1830 AC 02/03 PO 0330 Docusate Sodium 100 MG TID 01/31 2100 AC 02/02 PO 2155 Hydromorphone HCl 1 MG Q4-6 PRN PRN 02/01 0315 AC 02/03 IV PUSH 0326 Losartan Potassium 100 MG DAILY 02/02 0900 AC 02/02 PO 0815 Melatonin 5 MG AT BEDTIME 02/03 2100 CAN PO Montelukast Sodium 10 MG AT BEDTIME 01/31 2100 AC 02/02 PO 2328 Ondansetron HCl 4 MG Q6P PRN 01/31 1815 AC IV Oxycodone HCl 10 MG Q4 HRS NEEDED PRN 02/01 1715 AC 02/03 PO 0539 Oxycodone HCl 5 MG Q4 HRS NEEDED PRN 02/01 0830 AC 02/02 PO 1645 Senna 374 MG QPM PRN 01/31 181 AC PO Sodium Chloride 1,000 ML Q20H 02/01 1530 DC 02/01 IV 1532 Tramadol HCl 50 MG Q4-6 PRN PRN 01/31 2030 AC PO Tramadol HCl 100 MG Q4-6 PRN PRN 01/31 2030 AC 02/02 PO 2331 Trimethobenzamide HCl 200 MG Q6P PRN 01/31 181 AC IM Zolpidem Tartrate 2.5 MG AT BEDTIME NEED.. 01/31 181 AC 02/02 PO 2155 Results Last 24 Hours of Lab Results: Laboratory Tests 02/02 0748 Coagulation Fibrinogen Activity Cancelled CBC relatively stable, fibrinogen increasing Assessment/Plan Assessment/Recommendations: 1. Bleeding tendency-patient will return to my office after discharge for a formal workup
--- NOTE | 2018-02-03 07:19 | PN- Neurosurgical ---
Subjective Subjective: Pt doing well. Reports incisional LBP with improvement after dilaudid. Denies LE pain, N/T, SOB, or CP. Did well walking on unit yest independently. Objective Vital Signs and I&Os Vital Signs Date Time Temp Pulse Resp B/P B/P Pulse O2 O2 Flow FiO2 Mean Ox Delivery Rate 02/03 0600 98.5 82 20 120/70 97 Room Air 02/03 0200 99.0 90 20 142/80 96 Room Air 02/03 0000 99.1 02/02 2217 98 98 02/02 2206 100.2 84 20 140/80 96 02/02 1928 99.4 91 20 146/80 99 02/02 1538 98.4 85 22 122/74 100 Room Air 02/02 1200 99.4 91 20 148/82 97 Room Air 02/02 0815 100 162/72 02/02 0800 99 Room Air 02/02 0800 98.0 100 20 162/72 99 Room Air Intake & Output 02/03 0800 02/03 0000 02/02 1600 02/02 0800 02/02 0000 02/01 1600 Intake Total 120 550 933 319 4367 Output Total 900 1610 740 995 Balance 120 -350 -1148 179 876 Intake, Blood 1211 Product Intake, IV 20 70 342 489 180 Intake, Oral 100 480 120 430 480 Number 0 0 0 0 Bowel Movements Output, 100 110 90 145 Drainage Output, Urine 800 1500 650 850 Patient 93.1 kg 93.1 kg Weight Weight Bed scale Measurement Method Physical Exam: Pt awake and alert conversive and appropriate incision flat without drainage HV with serosanguinous drainage, not emptied yet this am normal motor and sensory exam bilat LE gavino po voiding on own ambulating using IS to 3.5L this am Current Medications: Current Medications Sig/[place] Start time Last Medication Dose Route Stop Time Status Admin Albuterol Sulfate 2 PUF Q4P PRN 01/31 2030 AC INH Atorvastatin Calcium 10 MG 1700 02/01 1700 AC 02/02 PO 1637 Bisacodyl 10 MG DAILY NEEDED PRN 01/31 1830 AC [place] Budesonide/ 2 PUF BID 01/31 2100 AC 02/03 Formoterol Fumarate INH 0035 Cefazolin Sodium 2 GM IQ8 02/02 0800 AC 02/02 N/A 1 UNIT IV 02/03 0759 2329 Diazepam 5 MG Q8P PRN 01/31 1830 AC 02/03 PO 0330 Docusate Sodium 100 MG TID 01/31 2100 AC 02/02 PO 2155 Hydromorphone HCl 1 MG Q4-6 PRN PRN 02/01 0315 AC 02/03 IV PUSH 0326 Losartan Potassium 100 MG DAILY 02/02 0900 AC 02/02 PO 0815 Melatonin 5 MG AT BEDTIME 02/03 2100 CAN PO Montelukast Sodium 10 MG AT BEDTIME 01/31 2100 AC 02/02 PO 2328 Ondansetron HCl 4 MG Q6P PRN 01/31 181 AC IV Oxycodone HCl 10 MG Q4 HRS NEEDED PRN 02/01 171 AC 02/03 PO 0539 Oxycodone HCl 5 MG Q4 HRS NEEDED PRN 02/01 0830 AC 02/02 PO 1645 Senna 374 MG QPM PRN 01/31 181 AC PO Sodium Chloride 1,000 ML Q20H 02/01 1530 DC 02/01 IV 1532 Tramadol HCl 50 MG Q4-6 PRN PRN 01/31 2030 AC PO Tramadol HCl 100 MG Q4-6 PRN PRN 01/31 2030 AC 02/02 PO 2331 Trimethobenzamide HCl 200 MG Q6P PRN 01/31 1815 AC IM Zolpidem Tartrate 2.5 MG AT BEDTIME NEED.. 01/31 1815 AC 02/02 PO 215 Results Last 48 Hours of Labs: Laboratory Tests 02/02 02/02 0748 0303 Chemistry Sodium (137 - 145 mmol/L) 142 Potassium (3.5 - 5.1 mmol/L) 3.6 Chloride (98 - 107 mmol/L) 108 H Carbon Dioxide (22 - 30 mmol/L) 29 Anion Gap (5 - 16) 5 BUN (7 - 17 mg/dL) 19 H Creatinine (0.5 - 1.0 mg/dL) 1.2 H Estimated GFR (>60 ml/min) 46 L BUN/Creatinine Ratio (7 - 25 %) 15.8 Coagulation PT (9.4 - 12.5 SEC) 11.3 INR (0.90 - 1.19) 1.04 APTT (25 - 37 SEC) 28 Fibrinogen Activity (200 - 393 MG/DL) Cancelled 171 L Hematology CBC w Diff NO MAN DIFF REQ WBC (4.8 - 10.8 /CUMM) 6.3 RBC (4.20 - 5.40 /CUMM) 2.75 L Hgb (12.0 - 16.0 G/DL) 8.1 L Hct (37 - 47 %) 24.0 L MCV (81.0 - 99.0 FL) 87.0 MCH (27.0 - 31.0 PG) 29.6 MCHC (33.0 - 37.0 G/DL) 34.0 RDW (11.5 - 14.5 %) 13.0 Plt Count (130 - 400 /CUMM) 108 L MPV (7.4 - 10.4 FL) 7.9 Gran % (42.2 - 75.2 %) 59.6 Lymphocytes % (20.5 - 51.1 %) 27.4 Monocytes % (1.7 - 9.3 %) 8.8 Eosinophils % (0 - 5 %) 3.5 Basophils % (0.0 - 2.0 %) 0.7 Absolute Granulocytes (1.4 - 6.5 /CUMM) 3.7 Absolute Lymphocytes (1.2 - 3.4 /CUMM) 1.7 Absolute Monocytes (0.10 - 0.60 /CUMM) 0.6 Absolute Eosinophils (0.0 - 0.7 /CUMM) 0.2 Absolute Basophils (0.0 - 0.2 /CUMM) 0 02/01 02/01 1430 1008 Chemistry Sodium (137 - 145 mmol/L) 140 Potassium (3.5 - 5.1 mmol/L) 3.4 L Chloride (98 - 107 mmol/L) 106 Carbon Dioxide (22 - 30 mmol/L) 28 Anion Gap (5 - 16) 7 BUN (7 - 17 mg/dL) 21 H Creatinine (0.5 - 1.0 mg/dL) 1.3 H Estimated GFR (>60 ml/min) 42 L BUN/Creatinine Ratio (7 - 25 %) 16.2 Coagulation PT (9.4 - 12.5 SEC) 12.2 INR (0.90 - 1.19) 1.12 Fibrinogen Activity (200 - 393 MG/DL) 130 L Hematology CBC w Diff NO MAN DIFF REQ WBC (4.8 - 10.8 /CUMM) 8.6 RBC (4.20 - 5.40 /CUMM) 3.05 L Hgb (12.0 - 16.0 G/DL) 8.9 L Hct (37 - 47 %) 26.2 L MCV (81.0 - 99.0 FL) 85.8 MCH (27.0 - 31.0 PG) 29.2 MCHC (33.0 - 37.0 G/DL) 34.0 RDW (11.5 - 14.5 %) 12.9 Plt Count (130 - 400 /CUMM) 128 L MPV (7.4 - 10.4 FL) 7.6 Gran % (42.2 - 75.2 %) 68.3 Lymphocytes % (20.5 - 51.1 %) 21.1 Monocytes % (1.7 - 9.3 %) 9.3 Eosinophils % (0 - 5 %) 0.7 Basophils % (0.0 - 2.0 %) 0.6 Absolute Granulocytes (1.4 - 6.5 /CUMM) 5.9 Absolute Lymphocytes (1.2 - 3.4 /CUMM) 1.8 Absolute Monocytes (0.10 - 0.60 /CUMM) 0.8 H Absolute Eosinophils (0.0 - 0.7 /CUMM) 0.1 Absolute Basophils (0.0 - 0.2 /CUMM) 0.1 02/01 0912 Urines Urinalysis MOD H Urine Color (YEL,AMB,STR) YEL Urine Clarity (CLEAR) CLEAR Urine pH (5.0 - 8.0) 6.0 Ur Specific [place] (1.001 - 1.035) 1.015 Urine Protein (NEG,<30 MG/DL) NEG Urine Ketones (NEG) NEG Urine Nitrite (NEG) NEG Urine Bilirubin (NEG) NEG Urine Urobilinogen (0.1 - 1.0 EU/dl) 0.2 Ur Leukocyte Esterase (NEG) NEG Ur Microscopic SEDIMENT EXAMINED Urine RBC (0 - 5 /HPF) 3-5 Urine WBC (0 - 2 /HPF) 1-3 H Ur Epithelial Cells (NONE,FEW) MOD H Urine Hemoglobin (NEG) MOD H Urine Glucose (N MG/DL) NEG Assessment/Plan Assessment/Plan Pt POD3 s/p L3/4, L4/5, L5/S1 TLIF and doing well. Neurologically intact. Bleeding issue seems to have resolved and Dr. Roe rec outpt workup after discharge and nothing further at this point while in hospital. Plan: -dc drain if less than 50-60cc/shift, abx until drain out -cont to ambulate -check labs, consider PRBC if HCT less than yest or pt symptomatic -possible dc home later today or tomorrow -will need 2wk postop fu for wound check and iris -needs VNA services for dc -dc instructions reviewed with pt - keep incision covered for showers, no submerging, no driving, no lift more than 5lbs -po dilaudid and valium for dc -fu appt with Dr. Roe after dc Core Measures Venous Thromboembolism VTE Risk Factors Surgery No Mechanical VTE Prophylaxis d/t N/A MechProphylax Ordered No VTE Pharm Prophylaxis d/t Bleeding (Active) Attending MD Review Statement Attending Statement Attending MD Statement: examined this patient, discuss w/resident/PA[employer], discussed w/nursing
[2018-02-03] MEDS ORDERED: DILAUDID2 M1 PO (07:30)
[2018-02-03] MEDS ORDERED: DOCUSATE SODIU100 M3 PO (07:30)
[2018-02-03] MEDS ORDERED: VALIUM5 M2 PO (07:30)
--- NOTE | 2018-02-03 07:32 | Patient Discharge Instructions ---
Discharge Instructions General Discharge Information You were seen/treated for: L3/4, L4/5, L5/S1 spondylolisthesis, stenosis, DDD You had these procedures: L3/4, L4/5, L5/S1 TLIF Surgery Date: 01/31/18 Watch for these problems: Fever>101.3, increased pain, redness/swelling/drainage, dizziness, shortness of breath, chest pains Call Surgeon to remove: Machelle Do not soak the wound: No No bath, but you may shower: Yes Other wound care: shower with occlusive dressing Special Instructions: keep incision covered for showers, no submerging, no driving, no lift more than 5lbs po dilaudid for pain and valium for spasm Make a follow up appt with Dr. Roe within the next 2 weeks Diet Continue normal diet: Yes Recommended Diet: Regular Activity Full Activity/No Limits: No Activity Self Limited: Yes Pounds, do NOT lift more than: 5 Activity Limited to: Weight bear as tolerated Other activity limits: out of bed with brace Acute Coronary Syndrome Inclusion Criteria At DC or during hospital stay patient has or had the following: ACS DIAGNOSIS No Discharge Core Measures Meds if any: Prescribed or Continued at Discharge Meds if any: NOT Prescribed or Continued at Discharge Congestive Heart Failure Inclusion Criteria At DC or during hospital stay patient has or had the following: CHF DIAGNOSIS No Discharge Core Measures Meds if any: Prescribed or Continued at Discharge Meds if any: NOT Prescribed or Continued at Discharge Cerebrovascular accident Inclusion Criteria At DC or during hospital stay patient has or had the following: CVA/TIA Diagnosis No Discharge Core Measures Meds if any: Prescribed or Continued at Discharge Meds if any: NOT Prescribed or Continued at Discharge Venous thromboembolism Inclusion Criteria VTE Diagnosis No VTE Type NONE VTE Confirmed by (Test) NONE Discharge Core Measures - Per Current guidelines, there needs to be overlap - treatment for the first 5 days of Warfarin therapy. - If discharged on Warfarin prior to 5 days of - overlap therapy, the patient will need to be - assessed for post discharge needs including - *Post discharge parental anticoagulation - *Warfarin and/or parental anticoagulation education - *Follow up date to check INR post discharge At least 5 days overlap therapy as Inpatient No Meds if any: Prescribed or Continued at Discharge Note: Overlap Therapy is Warfarin and Anticoagulant Meds if any: NOT Prescribed or Continued at Discharge
--- NOTE | 2018-02-03 07:35 | Surg Short-stay <48hrs Dis Sum ---
Visit Information Visit Dates Admission Date: 01/31/18 Discharge Date: 02/04/18 Surgical Short Stay DC Summary Admission Diagnosis: L3/4, L4/5, L5/S1 spondylolisthesis, stenosis, DDD Final Diagnosis: same as above, s/p Surgery Date: 01/31/18 Name of Procedure: 1. L3, L4, L5 pars osteotomies for correction of deformity 2. L3/4, L4/5, L5/ S1 far lateral discectomies, TLIF with interbody howard tritanium cages, autograft 3. L3, L4, L5, S1 segmental posterolateral arthrodesis with styker vyas pedicle screws/rods, autograft, bio boat DBM allograft, ICBM aspirate 4. ICBM aspirate 5. O-arm navigation Procedure(s): Surgery Date: 01/31/18 Name of Procedure: 1. L3, L4, L5 pars osteotomies for correction of deformity 2. L3/4, L4/5, L5/ S1 far lateral discectomies, TLIF with interbody howard tritanium cages, autograft 3. L3, L4, L5, S1 segmental posterolateral arthrodesis with styker vyas pedicle screws/rods, autograft, bio boat DBM allograft, ICBM aspirate 4. ICBM aspirate 5. O-arm navigation Summary/Significant Findings: Operative Indication: This 57 year old female with progressive and intractable bilat LE pain and parasthesias not responsive to conservative care with high grade stenosis, DDD, and spondylolisthesis from L3/4 to L5/S1 now presents for lumbar decompression and stabilization for multilevel high grade stenosis and spondylolisthesis L3- S1. She had an elective L3/4, L4/5, L5/S1 TLIF by and on 01/31. She was given ffp in the OR and was retransfused approximately 1500mls cell saver for an unexpectedly high blood loss, with concerns for a coagulopathy during the case. She was also given TXA following her recovery with further blood loss evidence by her drainage from the hemovac, which slowed down her first post-op night. She was transferred to ICU for closer monitoring of her vital signs and drainage, and was seen in consultation by (hematology) due to the observed bleeding and thrombocytopenia. She was transfused 2u prbcs and pooled platelets on post-op day#1 for acute blood loss anemia and worsening thrombocytopenia (platelets dropped to 85). She was transferred to a gen surg floor, had some difficulty acheiving adequate pain control, and has been working with PT. The drain was left in place with continued antibiotics, until the drainage was acceptable for removal. She was started on a decadron taper on 02/03 due to difficulty managing her pain, which will continue as a taper over the next 5 days once she is discharged home on 02/04/18. She will be going home with VNA services, will not be resuming her home aspirin until cleared by , and she will be following up with as an outpatient for further workup. Condition at Discharge: stable Discharge Disposition: home health services Discharge instructions provided to patient/family: Yes Post discharge follow-up plan: follow up with 2 weeks follow up with (floor molder) as directed Copies to: Patricia FLOOD,Ollie
[2018-02-03 08:10] LABS: ABSOLUTE BASOPHIL COUNT 0 /CUMM (0.0-0.2); ABSOLUTE EOSINOPHIL COUNT 0.3 /CUMM (0.0-0.7); ABSOLUTE GRANULOCYTE CT 2.9 /CUMM (1.4-6.5); ABSOLUTE LYMPH COUNT 1.4 /CUMM (1.2-3.4); ABSOLUTE MONOCYTE COUNT 0.5 /CUMM (0.10-0.60); BASOPHIL % 0.9 % (0.0-2.0); EOSINOPHIL % 5.3 % (0-5); GRANULOCYTE % 57.1 % (42.2-75.2); MEAN CORPUSCULAR HGB 29.6 PG (27.0-31.0); MEAN CORPUSCULAR HGB CONC 33.6 G/DL (33.0-37.0); MEAN CORPUSCULAR VOLUME 87.9 FL (81.0-99.0); MEAN PLATELET VOLUME 8.4 FL (7.4-10.4); PLATELET COUNT 105 /CUMM (130-400); RBC DISTRIBUTION WIDTH 12.8 % (11.5-14.5); RED BLOOD CELL CT 2.73 /CUMM (4.20-5.40); WHITE BLOOD CELL COUNT 5.1 /CUMM (4.8-10.8)
[2018-02-03 09:17] LABS: PT 10.4 SEC (9.4-12.5)
[2018-02-03] MEDS ORDERED: DEXAMETHASONE1 M1 PO ×3 (11:14→15:31)
[2018-02-03 11:51] VITALS: BP 140/80
[2018-02-03 14:51] VITALS: BP 140/80
[2018-02-03 18:00] VITALS: BP 130/80
[2018-02-03 21:52] VITALS: BP 130/78
[2018-02-04 02:00] VITALS: BP 136/80
[2018-02-04 06:00] VITALS: BP 120/70
--- NOTE | 2018-02-04 07:33 | PN- Neurosurgical ---
Subjective Subjective: Patient feeling well this morning, no acute events overnight, her initial postoperative pain has resolved. Her preoperative numbness in her knees has resolved. She has been walking and doing stairs. She is tolerating her diet and eating well. She wishes to be discharged home today Objective Vital Signs and I&Os Vital Signs Date Time Temp Pulse Resp B/P B/P Pulse O2 O2 Flow FiO2 Mean Ox Delivery Rate 02/04 0600 98.7 96 20 120/70 98 Room Air 02/04 0200 98.0 89 20 136/80 97 Room Air 02/03 2152 98.7 95 20 130/78 98 Room Air 02/03 1800 98.4 98 20 130/80 96 Room Air 02/03 1451 98.4 91 20 140/80 97 02/03 1151 98.1 94 20 140/80 97 02/03 0819 88 148/96 Intake & Output 02/04 0800 02/04 0000 02/03 1600 02/03 0800 02/03 0000 02/02 1600 Intake Total 653 035 0034 220 120 550 Output Total 60 55 170 900 Balance 155 184 8749 50 120 -350 Intake, IV 50 150 20 20 70 Intake, Oral 977 666 3846 200 100 480 Number 0 0 Bowel Movements Output, 60 55 170 100 Drainage Output, Urine 800 Patient 205 lb Weight Physical Exam: Well-developed well-nourished no apparent distress. Sitting upright in the chair, comfortable HEENT: Atraumatic, extraocular motion intact Neck: Supple, no lymphadenopathy Respiratory: No respiratory distress Back: Dressing clean dry and intact, incision flat, dressing change, incision clean dry and intact, Hemovac drain removed, 30 cc was left in the drain at time of removal. Patient tolerated well without complications. Extremities: No edema, no calf pain Neuro: Alert and oriented x3 Bilateral lower extremities are neurovascularly intact with sensation and motor grossly intact Psych: Mood affect normal, normal memory normal judgment. Skin: Warm and dry, no rash on exposed skin Results Last 48 Hours of Labs: Laboratory Tests 02/04 02/03 02/03 0640 0815 0647 Chemistry Sodium (137 - 145 mmol/L) Pending 142 Potassium (3.5 - 5.1 mmol/L) Pending 3.4 L Chloride (98 - 107 mmol/L) Pending 104 Carbon Dioxide (22 - 30 mmol/L) Pending 33 H Anion Gap (5 - 16) Pending 5 BUN (7 - 17 mg/dL) Pending 11 Creatinine (0.5 - 1.0 mg/dL) Pending 1.0 Estimated GFR (>60 ml/min) 57 L BUN/Creatinine Ratio (7 - 25 %) Pending 11.0 Magnesium (1.6 - 2.3 mg/dL) 1.7 Coagulation PT (9.4 - 12.5 SEC) 10.4 INR (0.90 - 1.19) 0.95 Fibrinogen Activity (200 - 393 MG/DL) 245 Hematology CBC w Diff NO MAN DIFF REQ WBC (4.8 - 10.8 /CUMM) 5.1 RBC (4.20 - 5.40 /CUMM) 2.73 L Hgb (12.0 - 16.0 G/DL) 8.1 L Hct (37 - 47 %) 24.0 L MCV (81.0 - 99.0 FL) 87.9 MCH (27.0 - 31.0 PG) 29.6 MCHC (33.0 - 37.0 G/DL) 33.6 RDW (11.5 - 14.5 %) 12.8 Plt Count (130 - 400 /CUMM) 105 L MPV (7.4 - 10.4 FL) 8.4 Gran % (42.2 - 75.2 %) 57.1 Lymphocytes % (20.5 - 51.1 %) 27.0 Monocytes % (1.7 - 9.3 %) 9.7 H Eosinophils % (0 - 5 %) 5.3 H Basophils % (0.0 - 2.0 %) 0.9 Absolute Granulocytes (1.4 - 6.5 /CUMM) 2.9 Absolute Lymphocytes (1.2 - 3.4 /CUMM) 1.4 Absolute Monocytes (0.10 - 0.60 /CUMM) 0.5 Absolute Eosinophils (0.0 - 0.7 /CUMM) 0.3 Absolute Basophils (0.0 - 0.2 /CUMM) 0 Assessment/Plan Assessment/Plan Pt POD4 s/p L3/4, L4/5, L5/S1 TLIF and doing well. Neurologically intact. Plan: -dc drain, DC antibiotics -cont to ambulate, back brace -Discharge home today with VNA services -will need 2wk postop fu for wound check and iris -fu appt with Dr. Roe after dc -Discussed with Dr. Fernandez -pt understands and agrees with plan Core Measures Venous Thromboembolism VTE Risk Factors Surgery No Mechanical VTE Prophylaxis d/t N/A MechProphylax Ordered No VTE Pharm Prophylaxis d/t Bleeding (Active)
[2018-02-04 09:26] VITALS: BP 130/70
== END 2018-02-04 13:52 | disposition home health service (06) | DRG 454 ==
LOC: SDA 02:06 → ENRESERV 15:45 → ENTRNSPT 17:57 → EDTRNSPTSTS 18:13 → EDTRNSPT 18:13 → 2NA 18:20 → CMPTRNSPT 18:22 → CRI 20:36 → ENTRNSPT 02-02 18:41 → EDTRNSPTSTS 02-02 18:56 → EDTRNSPT 02-02 18:56 → 2NA 02-02 19:11 → CMPTRNSPT 02-02 19:15 → ENPENDDIS 02-04 08:16 → 2NA 02-04 13:52
PROVIDERS: Neurological Surgery; Physician Assistant; Physician Assistant Surgical
PROC: 0QB23ZZ Excision of Right Pelvic Bone, Percutaneous Approach (ICD-10-PCS; principal; 2018-01-31)
PROC: 0SB40ZZ Excision of Lumbosacral Disc, Open Approach (ICD-10-PCS; principal; 2018-01-31)
PROC: 0SG3071 Fusion of Lumbosacral Joint with Autologous Tissue Substitute, Posterior Approach, Posterior Column, Open Approach (ICD-10-PCS; principal; 2018-01-31)
PROC: 00NY0ZZ Release Lumbar Spinal Cord, Open Approach (ICD-10-PCS; principal; 2018-01-31)
PROC: 0SG10AJ Fusion of 2 or more Lumbar Vertebral Joints with Interbody Fusion Device, Posterior Approach, Anterior Column, Open Approach (ICD-10-PCS; principal; 2018-01-31)
PROC: 30233K1 Transfusion of Nonautologous Frozen Plasma into Peripheral Vein, Percutaneous Approach (ICD-10-PCS; 2018-01-31)
PROC: 30233N0 Transfusion of Autologous Red Blood Cells into Peripheral Vein, Percutaneous Approach (ICD-10-PCS; 2018-02-01)
PROC: 30233L0 Transfusion of Autologous Fresh Plasma into Peripheral Vein, Percutaneous Approach (ICD-10-PCS; 2018-02-01)
DX: M43.17 Spondylolisthesis, lumbosacral region (principal); D62 Acute posthemorrhagic anemia; Z85.71 Personal history of Hodgkin lymphoma; Z88.1 Allergy status to other antibiotic agents; Z79.82 Long term (current) use of aspirin; Z79.51 Long term (current) use of inhaled steroids; D69.6 Thrombocytopenia, unspecified; M48.07 Spinal stenosis, lumbosacral region; R00.0 Tachycardia, unspecified
CPT/HCPCS: 2NASP; CCU; 36415; 36592; 72020; 72100; 81001; 82436; 86920; 87086; 97110-GO; 97116-GO; 97161-GP; 97535-GO; C9290; J0131; J0690; J1170; J1630; J1644; J2405; J3250; J3370; J3490; J7040; P9016; P9035